=== PATIENT | female | born 1945 | race Asian ===

== ENCOUNTER 2022-06-03 10:30 | Outpatient (RCR) | payer MEDICARE, SELFPAY ==
--- NOTE | 2022-05-13 08:26 | HP.PTEVAL_ITS ---
Patient's Visit Information ALMA DELIA MARIN is a 76 year old F referred to Physical Therapy by Dr. Ilia Hernandez MD with a diagnosis of L knee pain. Date of Evaluation: 05/12/22 Physical Therapist: John Kraus DPT - Visit Plan Frequency: 2x /Week Duration: 4 Weeks Plan: Start with L knee/hip strengthening in aquatic setting. Add in mobility as tolerated. - Subjective Pt. is here today for her initial evaluation with L knee pain. Pt. reports she was in [place] earlier this year and was attempting to get in her car and felt sharp pain in her L knee. She ultimately went to the hospital. She had xrays and given pain medication. She followed back up with physician here in town once returning. Pt. reports physician reported that she might have a posterior lateral horn meniscal injury, but does have some arthritis as well. She was told to stay off stairs and be gentle on her knee. She has been and is now only having intermittent symptoms, but seems to be more random than show a marked pattern. Pt. reports posterior lateral pain, but also having pain that radiates along the front of her knee. PMH: Pt. had a R TKA with x5 DYLON, this knee is now fused; B hip arthroplasties (R hip[ fracture post replacement non displaced but non healing??), OA of L ankle. Pt. likes to garden, and talk walks. She also plans to visit [place] in [place]. Pt. is hopeful to reduce her symptoms in order to tolerate walking better and complete all recreational activities without limitations. - Pain L knee Pain Intensity (Out of 10): 5 - Objective POSTURE: Pt. had general flexed posture. Pt. lacks TKE on R knee, thus has increased Wt. shift to L side. PALPATION: pt. had tenderness throughout L joint line, especially at posterior lateral aspects. NEURO: normal throughout BLEs. ROM: R knee fused in ~15deg of flexon. L knee: 0-4-119eg pain at end ranges. MMT: LLE: 4/5 thorughout mild increase in symptoms with HS and hip flexion. GAIT: Pt. ambulates with SPC, alternating hand use due to B knee pain. Pt. has limited (basically no mobility of R knee). Pt. has decreased step length bilaterally. Increased pain with L stance phase. STAIRS: very limited secondary to pain in her L knee. - Balance/Special Test Scores Lower Extremity Functional Score: 47 - Goals Goal 1:: LTG: Pt. to be I with HEP. Goal Time Frame: 4-6 Weeks Goal 2:: STG: Pt. to have L knee ROM to 0-0-120deg without increase in symptoms. Goal Time Frame: 2 Weeks Goal 3:: LTG: Pt. to walk unlimited distances with SPC without increase in L knee pain. Goal Time Frame: 4-6 Weeks Goal 4:: LTG: Pt. to negotiate 1 flight of stairs with 1 HR without increase in symptoms allowing for increased ability to negotiate to basement. Goal Time Frame: 4-6 Weeks Goal 5:: LTG: pt. to have increased LLE strength to 5/5 throughout. - Rehabilitation Potential Physical Therapy Diagnosis: Pt. has L knee OA possible meniscal pain. Pt. has marked limited R knee ROM, but is here for more of her L knee pain. Pt. would benefit from PT in aquatic setting to work on L LE strength to increase stability on her L knee with all functional mobility. Pt. has to utilize her L knee for most stability and function due to limited RLE ROM. Rehabilitation Potential: Good - Anticipated Interventions Patient/Client Instruction: Educate patient on: Condition, Plan of Care, Risk Factors, Benefits of Fitness Program For the Purpose of:: To improve health and function, To foster healthy habits, To improve decision making, To facilitate caregiver knowledge, To improve self management, To prevent re-injury, To improve ability to perform tasks related to life management Therapeutic Exercise to Include: Strength training, Power training, Endurance training, Balance training, Flexibilty training, Gait and locomotor training, In an aquatic setting, Passive ROM, Active ROM, [place] Exercises For the Purpose of:: To decrease pain, To increase ROM, To improve nutrient delivery to tissue, To increase oxygenation perfusion, To improve muscle performance and motor function, To improve ability to perform ADL's Thank you for the opportunity to evaluate your patient. For Medicare and Medicare HMO plans, please review the plan of care and approve it. It will need to be FAXED BACK to us at [phone] for Medicare purposes. For Medicare only, by signing this I certify the plan of care. Please let me know if there are questions or concerns regarding this plan of care. Physician Signature: Date:
--- NOTE | 2022-06-03 15:20 | HP.PT.NRP ---
ALMA DELIA MARIN was seen in my office for initial evaluation on 05/12/22. The following Plan of Care was established for this patient: Initial Frequency: 2x /Week Initial Duration: 4 Weeks Patient/Client Instruction: Educate patient on: Condition, Plan of Care, Risk Factors, Benefits of Fitness Program For the Purpose of:: To improve health and function, To foster healthy habits, To improve decision making, To facilitate caregiver knowledge, To improve self management, To prevent re-injury, To improve ability to perform tasks related to life management Therapeutic Exercise to Include: Strength training, Power training, Endurance training, Balance training, Flexibilty training, Gait and locomotor training, In an aquatic setting, Passive ROM, Active ROM, [place] Exercises For the Purpose of:: To decrease pain, To increase ROM, To improve nutrient delivery to tissue, To increase oxygenation perfusion, To improve muscle performance and motor function, To improve ability to perform ADL's This patient was last seen in our office 06/03/22. Pertinent comments regarding their Physical therapy will appear below: I talked with Alma Delia today after her appointment in with aquatic therapy. Overall she has been very compliant with all of her exercises and is I with them currently. She is still having some pain, but does not let this slow her down much at all. She is progressing, but slowly. She does have some limitations with her other knee which causes increased stress to her L knee. Pt. is going to continue pool exercises at local facility I. She is also going out to visit her family in [place] at the end of the month and it sounds like she might have some access to something similar there as well. Pt. will be DC from PT at this point in time. At this point I will be discontinuing this patient from physical therapy. I would be happy to see this patient again in the future if found appropriate by the physician. Thank you! John Kraus, DPT Balance/Gait/Functional tests - Balance/Special Test Scores Lower Extremity Functional Score: 53
== END 2022-06-03 19:00 | disposition home or self-care (01) ==
LOC: PT 10:30
PROVIDERS: PCP Internal Medicine; Referring Provider Specialist; Visit Provider Specialist
DX: M25.462 Effusion, left knee; M17.12 Unilateral primary osteoarthritis, left knee
CPT/HCPCS: 97113; 97161

== ENCOUNTER 2023-02-04 20:17 | Emergency (ER) | payer MEDICARE, SELFPAY ==
[2023-02-04 20:18] VITALS: BP 111/69; PULSE 85; RESP 15; TEMP 36.2; O2SAT 98
--- NOTE | 2023-02-04 21:38 | EKG12_ITS ---
Test Reason : DYSRHYTHMIA Blood Pressure : / mmHG Vent. Rate : 082 BPM Atrial Rate : 082 BPM P-R Int : 210 ms QRS Dur : 070 ms QT Int : 344 ms P-R-T Axes : 059 028 048 degrees QTc Int : 401 ms Sinus rhythm with 1st degree A-V block Low voltage QRS Septal infarct , age undetermined Abnormal ECG Confirmed by KEVIN YANG, DEMETRIUS ([id number]), video news editor JAYA SIMMONS ([id number]) on 02/16/2023 9:48:55 AM Referred By: Confirmed By:DEMETRIUS BROWN MD
[2023-02-04 22:16] LABS: Mucous, Urine 0 SEEN /hpf (<or=2+)
[2023-02-04 22:17] VITALS: BP 101/60; PULSE 95; RESP 24; O2SAT 97
[2023-02-04 22:19] LABS: Color, Urine Yellow (Yellow); Glucose, Dipstick Normal (Normal); Ketone-Dipstick Negative (Negative); Leukocyte Esterase-Dipstick 100 /ul (Negative); Nitrite-Dipstick Positive (Negative); Occult Blood-Urine 10 /ul (Negative); Protein-Dipstick 30 mg/dl (Negative); Urine Bilirubin Dipstick Negative (Negative); Urine Clarity Sl. Cloudy (Clear); Urine Urobilinogen Normal (Normal)
[2023-02-04 22:24] LABS: Red Blood Cells-Urine 0-5 SEEN /hpf (0-5); Squamous Epithelial Cells - UA 0-5 SEEN /hpf (5-10); White Blood Cells 5-10 SEEN /hpf (0-5)
[2023-02-04 22:25] LABS: Bacteria 1+ /hpf (None Seen)
--- NOTE | 2023-02-04 22:25 | EDS_ITS ---
HPI History of Present Illness Chief Complaint: Abn Labs Informant: patient and PCP Narrative Narrative: 77-year-old female with past medical history of diabetes and hyperlipidemia presenting for abnormal labs. Patient went and saw nurse practitioner PCP office today for 2 weeks of generalized malaise, 10 pound weight loss, decreased appetite. She had lab work performed which showed calcium of 15, BUN of 64 and a creatinine of 2.3. PCP sent her to the ER. Her glucose was 89. She also has a mild anemia. Apparently 2 months ago patient's BUN was 21 and her creatinine was 0.59. She was also prescribed Macrobid for concern of UTI which she has not started yet. Patient denies any urinary symptoms. She denies any fever, chills, night sweats, GI or symptoms. Notes that she has had a mild intermittent dry cough. No other complaints at this time. PFSH PFSH Home Medications atorvastatin 10 mg tablet 10 mg PO QHS 02/04/23 [History Last Taken Unknown] cholecalciferol (vitamin D3) 125 mcg (5,000 unit) tablet (Vitamin D3) 125 mcg PO DAILY 02/04/23 [History Last Taken Unknown] metformin 1,000 mg tablet 1,000 mg PO BID 02/04/23 [History Last Taken Unknown] Allergy/AdvReac Type Severity Reaction Status Date / Time celecoxib [From Celebrex] AdvReac HEADACHE Verified 02/04/23 20:23 Penicillins AdvReac HEADACHE Verified 02/04/23 20:23 Social History Smoking Status: Never smoker ROS ROS ED Constitutional Constitutional ED: Reports weight loss; Denies chills, fever(s) or sweats Eyes Eyes: Denies change in vision ENT ENT ED: Denies sore throat Cardiovascular Cardiovascular: Denies chest pain Respiratory/Chest Respiratory/Chest: Reports cough; Denies dyspnea Gastrointestinal Gastrointestinal: Denies abdominal pain, constipation, diarrhea, melena, nausea or vomiting Genitourinary Genitourinary ED: Denies dysuria, hematuria or urinary frequency Musculoskeletal Musculoskeletal: Reports other Details: chronic neuroma on right foot, no change ; Denies arthralgias or myalgias Integumentary Denies rash Neurologic Neurologic: Reports weakness; Denies headache(s) or paresthesias Psychiatric Psychiatric: Denies anxiety Hematologic/Lymphatic Hematologic/Lymphatic: Denies easy bleeding or easy bruising EXAM Physical Exam Const Vital Signs: 02/04/23 20:18 02/04/23 22:17 02/04/23 22:37 Temperature 97.2 F L Temperature Source Temporal Pulse Rate 85 95 Respiratory Rate 15 24 H Respiratory Effort Normal Non-Labored Respiratory Pattern Normal Blood Pressure 111/69 101/60 Blood Pressure Mean 83 73 Pulse Ox 98 97 Oxygen Delivery Method Room Air Room Air 02/05/23 00:00 Temperature Temperature Source Pulse Rate 79 Respiratory Rate 17 Respiratory Effort Respiratory Pattern Blood Pressure 124/66 H Blood Pressure Mean 85 Pulse Ox 96 Oxygen Delivery Method Room Air Positive well nourished and well developed General Appearance ED: well developed and NAD HEENT Reports moist mucous membranes Eyes PERRL and EOMs intact bilaterally Neck supple and no JVD Neck Narrative: No enlarged thyroid Chest Wall inspection of chest normal Chest Narrative: Nontender swelling, approximately 2 cm in diameter with no overlying erythema just inferior to the head of the right clavicle Resp normal respiratory effort and clear to auscultation bilaterally Cardio regular rate, regular rhythm and no murmurs GI normal to inspection, nondistended, normoactive bowel sounds and non-tender Extremity normal to inspection General Extremety ED: Negative for edema or tenderness General Extremity: Negative for edema Neuro oriented x3 Sensorium / Orientation: alert Motor Exam: Negative for general weakness Psych mental status grossly normal Skin no rashes or lesions noted and no wounds MDM MDM MDM Narrative Medical decision making narrative: Is evaluated for hypercalcemia as well as BAY on outpatient labs. Labs were repeated here which confirmed that she does not fact have hypercalcemia, calcium is 14.7 with a normal albumin, she is a mild anemia the hemoglobin of 10.6 and a creatinine of 2.16 (her baseline appears to be 1.2). Given IV fluids. Given her profound hypercalcemia CT of the chest abdomen pelvis is performed in order to evaluate for mass/metastatic process. 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 She does have a history of prior gastric bypass. This is reviewed with general surgery, Dr. Lozano, who feels that likely the mass is from her spleen on her interpretation of the imaging but patient will need an MRI for further evaluation as she cannot have IV contrast due to her BAY at this time. Surgery here does not feel comfortable doing a biopsy and states that if she does need a splenic biopsy that would need interventional radiology and we do not have that capability here. Patient will call transfer. Will attempt to transfer patient to [facility]. Patient is agreeable with this. She is given IV Rocephin as she does have a urinary tract infection on urinalysis and urine culture is pending at this time. She has no symptoms of UTI or symptoms of sepsis at this time. Patient is given a bolus of 1 L fluid for her hypercalcemia and started on normal saline at 100 cc an hour. Case is discussed with [facility] transfer line. Patient agreeable to transfer [facility]. [facility]. Also discussed with [facility] hospitalist in case they do not have a bed available in a reasonable amount of time and she requires admission to our hospital until a bed of Decad[facility] becomes available. Lab Data Attestation: I reviewed the patient's lab results. Labs: Laboratory Results - last 24 hr 02/04/23 02/04/23 02/04/23 22:12 22:22 22:22 WBC 9.4 RBC 3.37 L Hgb 10.6 L Hct 33.5 L MCV 99.4 H MCH 31.5 MCHC 31.6 L RDW Std Deviation 48.5 H RDW Coeff of Hardeep 13.3 Plt Count 284 MPV 9.6 Immature Gran % (Auto) 0.300 Neut % (Auto) 65.3 Lymph % (Auto) 25.0 Pender % (Auto) 7.9 Eos % (Auto) 0.9 Baso % (Auto) 0.6 Absolute Neuts (auto) 6.1 Absolute Lymphs (auto) 2.34 Nucleated RBC % 0 Sodium 139 Potassium 3.8 Chloride 107 Carbon Dioxide 27.0 BUN 75 H Creatinine 2.16 H Est GFR (MDRD) Af Amer 28 L Est GFR (MDRD) Non-Af 23 L BUN/Creatinine Ratio 34.7 H Glucose 77 Calcium 14.7 H* Phosphorus 4.3 Total Bilirubin 0.40 Direct Bilirubin 0.14 AST 29 ALT 20 Alkaline Phosphatase 74 Total Protein 6.8 Albumin 3.6 3.7 Globulin 3.2 TSH 1.55 PTH Intact 8.9 L Urine Color Yellow Urine Clarity Sl. Cloudy Urine pH 5.0 Ur Specific [place] 1.020 Urine Protein 30 H Urine Glucose (UA) Normal Urine Ketones Negative Urine Occult Blood 10 H Urine Nitrite Positive H Urine Bilirubin Negative Urine Urobilinogen Normal Ur Leukocyte Esterase 100 H Urine RBC 0-5 SEEN Urine WBC 5-10 SEEN Ur Squamous Epith Cells 0-5 SEEN Urine Bacteria 1+ Urine Mucus 0 SEEN Radiography Diagnostic Testing: Clinical Impression(s) from Imaging Studies Chest/Abdomen/Pelvis CT 02/04/23 23:00 IMPRESSION: 1. Abnormal masslike density in the left upper quadrant measuring up to 12 cm. This could represent a gastric mass arising from the excluded portion of the stomach in this patient with previous gastric bypass. Alternatively, it could represent a mass arising from the spleen. A follow-up CT examination with intravenous and oral contrast is recommended. 2. Small gallstones. Electronically Signed: Brayan Robles MD at 0:05 EST , Rhythm Strip Rhythm Strip: Sinus Rhythm Rate: 82 Ectopy: None EKG Initial EKG: Attestation: I personally reviewed and interpreted this EKG as follows: Interpretation: Sinus Rhythm Comments: Normal sinus rhythm rate of 82 bpm with first-degree AV block MS interval 210 Normal axis Normal QRS and QTc Low voltage QRS Normal ST segments Prior EKG tracings: not available for review Prior: No Prior Discharge Plan Triage Chief Complaint: Abn Labs ED Provider: Laura Garcia Dx/Rx/DC Orders Clinical Impression: BAY (acute kidney injury), Abdominal mass, left upper quadrant, Anemia, Hypercalcemia Prescriptions: No Action metformin 1,000 mg tablet 1,000 mg PO BID atorvastatin 10 mg tablet 10 mg PO QHS cholecalciferol (vitamin D3) [Vitamin D3] 125 mcg (5,000 unit) tablet 125 mcg PO DAILY Primary Care Provider: Lizy Jewell Referrals: Lizy Jewell MD [Primary Care Provider] - Disposition Disposition: Acute Care Hospital
[2023-02-04 22:27] LABS: Absolute Lymphocyte Count 2.34 X10^3/uL (0.83-4.51); Absolute Neutrophil Count 6.1 X10^3/uL (2.0-7.7); Basophil# 0.06 X10^3/uL; Basophil% 0.6 % (0-1); Eosinophil# 0.08 X10^3/uL; Eosinophils% 0.9 % (0-5); Hematocrit 33.5 % (37-47); Hemoglobin 10.6 g/dL (12.0-15.0); Lymphocyte # 2.34 X10^3/ul (0.83-4.51); Mean Corp Hgb Conc 31.6 g/dL (32-36); Mean Corpuscular Hgb 31.5 pg (27.0-32.0); Mean Corpuscular Volume 99.4 fL (81-99); Mean Platelet Vol. 9.6 fl (6.2-12.0); Monocyte# 0.74 X10^3/uL; Monocyte% 7.9 % (0-10); NRBC Flagged by Analyzer 0 % (0-5); Neutrophil % 65.3 % (47-70); Platelet Count 284 K/mm3 (150-450); RBC Distribution Width CV 13.3 % (11.6-14.6); RBC Distribution Width SD 48.5 fl (35.1-43.9); Red Blood Count 3.37 M/mm3 (4.2-5.4); White Blood Count 9.4 K/mm3 (4.4-11.0)
[2023-02-04 22:45] LABS: AST(SGOT) 29 U/L (15-37); Alanine Aminotransfer ALT/SGPT 20 U/L (13-56); Albumin, Serum 3.6 g/dL (3.2-5.0); Alkaline Phosphatase 74 U/L (45-117); Bilirubin, Direct 0.14 mg/dL (0.00-0.30); Globulin 3.2 g/dL (2.2-4.2); Protein, Total 6.8 g/dL (6.4-8.2)
[2023-02-04] MEDS: 0.9% Normal Saline (1000mL) 1,000 ML 100 ML IV (22:49)
[2023-02-04 22:58] LABS: Albumin, Serum 3.7 g/dL (3.2-5.0); BUN 75 mg/dL (7-18); BUN/Creat Ratio 34.7 RATIO (10-20); Chloride 107 mmol/L (98-107); Creatinine, Serum 2.16 mg/dL (0.55-1.02); EST Glomerular Filtration Rate 23 mL/min (>60); Est Glom Filt Rate - Afr Amer 28 mL/min (>60); Glucose 77 mg/dL (74-106); Phosphorus 4.3 mg/dL (2.5-4.9); Potassium 3.8 mmol/L (3.5-5.1); Sodium Level 139 mmol/L (136-145); Thyroid Stim Hormone (TSH) 1.55 uIU/mL (0.358-3.74)
[2023-02-04 23:00] LABS: Calcium,Total 14.7 mg/dL (8.5-10.1)
--- NOTE | 2023-02-04 23:00 | CT_ITS ---
EXAM: CT CHEST, ABDOMEN AND PELVIS WITHOUT INTRAVENOUS CONTRAST CLINICAL INDICATION: hypercalcemia TECHNIQUE: Helically acquired images were obtained of the chest, abdomen and pelvis without intravenous contrast. This CT exam was performed using one or more of the following dose reduction techniques: automated exposure control, adjustment of the mA and/or kV according to patient size, and/or use of iterative reconstruction technique. RADIATION DOSE: CTDIvol = 7.68 mGy, DLP = 660.52 mGy-cm COMPARISON: No relevant prior studies available. FINDINGS: CHEST: LUNGS AND PLEURAL SPACES: Unremarkable. No mass. No consolidation or edema. No pleural effusion or thickening. No pneumothorax. HEART: Unremarkable. Heart size is normal. No pericardial effusion. No significant coronary artery calcifications. MEDIASTINUM: Unremarkable. No mediastinal or hilar adenopathy. Esophagus is unremarkable. No hiatal hernia. THYROID: Unremarkable. No thyroid lesions. ABDOMEN: LIVER: Unremarkable. Homogeneous. GALLBLADDER AND BILE DUCTS: Small gallstones. No gallbladder distention or wall edema. No intra- or extrahepatic biliary ductal dilation. PANCREAS: Unremarkable. No focal cystic mass. SPLEEN: The inferior margin has a normal appearance, but the superior margin blends with a large mass in the left upper quadrant measuring up to 12 cm.. ADRENALS: Unremarkable. No nodules. KIDNEYS AND URETERS: Unremarkable. Normal renal size and position. No hydronephrosis. STOMACH AND BOWEL: Abnormal masslike density in the left upper quadrant measuring up to 12 cm. Gastric bypass changes. No stomach or bowel distention. No focal inflammatory change. PELVIS: APPENDIX: No evidence of acute appendicitis. BLADDER: Unremarkable. REPRODUCTIVE: Unremarkable as visualized. No mass. CHEST, ABDOMEN and PELVIS: INTRAPERITONEAL SPACE: Unremarkable. No ascites or other fluid collection. No free air. BONES/JOINTS: Diffuse degenerative changes of the spine. Bilateral total hip arthroplasties. No suspicious lytic or blastic abnormality. SOFT TISSUES: Unremarkable. No discrete abdominal or pelvic wall hernia. VASCULATURE: Moderate atherosclerotic changes and ectasia of the aorta without aneurysm. LYMPH NODES: Unremarkable. No enlarged lymph nodes. CT/CT Chest, Abd, Pelvis WO Cont IMPRESSION: 1. Abnormal masslike density in the left upper quadrant measuring up to 12 cm. This could represent a gastric mass arising from the excluded portion of the stomach in this patient with previous gastric bypass. Alternatively, it could represent a mass arising from the spleen. A follow-up CT examination with intravenous and oral contrast is recommended. 2. Small gallstones. Electronically Signed: Brayan Robles MD at 0:05 EST ,
[2023-02-04 23:41] LABS: PTHIN 8.9 pg/mL (18.4-80.1)
[2023-02-05] VITALS: BP 124/66; PULSE 79; RESP 17; O2SAT 96
[2023-02-05] MEDS: 0.9% Normal Saline (500mL Bag) 500 ML 999 ML IV (00:18)
--- NOTE | 2023-02-05 01:00 | HP.PCM.HOS_ITS ---
HPI - General General Date of Admission: 02/05/23 Date of Service: 02/05/23 Chief Complaint: Hypercalcemia of 14.7 noted on outpatient labs. HPI Narrative ALMA DELIA MARIN, is a 77 F with a past medical history of who presents hyperlipidemia, diabetes mellitus type 2; of unknown control and osteoarthritis who presents to [facility] ER complaining of hypercalcemia of 14.7 mg/dL noted on her outpatient labs. Ms. Marin [facility] Home Medications atorvastatin 10 mg tablet 10 mg PO QHS 02/04/23 [History Last Taken Unknown] cholecalciferol (vitamin D3) 125 mcg (5,000 unit) tablet (Vitamin D3) 125 mcg PO DAILY 02/04/23 [History Last Taken Unknown] metformin 1,000 mg tablet 1,000 mg PO BID 02/04/23 [History Last Taken Unknown] Allergy/AdvReac Type Severity Reaction Status Date / Time celecoxib [From Celebrex] AdvReac HEADACHE Verified 02/04/23 20:23 Penicillins AdvReac HEADACHE Verified 02/04/23 20:23 Social History Smoking Status: Never smoker Vital Signs Vital Signs Vital Signs: 02/04/23 20:18 02/04/23 22:17 02/04/23 22:37 Temperature 97.2 F L Temperature Source Temporal Pulse Rate 85 95 Respiratory Rate 15 24 H Respiratory Effort Normal Non-Labored Respiratory Pattern Normal Blood Pressure 111/69 101/60 Blood Pressure Mean 83 73 Pulse Ox 98 97 Oxygen Delivery Method Room Air Room Air Results Lab / Micro Data 02/04/23 22:22 02/04/23 22:22 Labs: Laboratory Results - last 24 hr 02/04/23 22:12: Urine Color Yellow, Urine Clarity Sl. Cloudy, Urine pH 5.0, Ur Specific [place] 1.020, Urine Protein 30 H, Urine Glucose (UA) Normal, Urine Ketones Negative, Urine Occult Blood 10 H, Urine Nitrite Positive H, Urine Bilirubin Negative, Urine Urobilinogen Normal, Ur Leukocyte Esterase 100 H, Urine RBC 0-5 SEEN, Urine WBC 5-10 SEEN, Ur Squamous Epith Cells 0-5 SEEN, Urine Bacteria 1+, Urine Mucus 0 SEEN 02/04/23 22:22: WBC 9.4, RBC 3.37 L, Hgb 10.6 L, Hct 33.5 L, MCV 99.4 H, MCH 31.5, MCHC 31.6 L, RDW Std Deviation 48.5 H, RDW Coeff of Hardeep 13.3, Plt Count 284, MPV 9.6, Immature Gran % (Auto) 0.300, Neut % (Auto) 65.3, Lymph % (Auto) 25.0, [place] % (Auto) 7.9, Eos % (Auto) 0.9, Baso % (Auto) 0.6, Absolute Neuts (auto) 6.1, Absolute Lymphs (auto) 2.34, Nucleated RBC % 0, Sodium 139, Potassium 3.8, Chloride 107, Carbon Dioxide 27.0, BUN 75 H, Creatinine 2.16 H, Est GFR (MDRD) Af Amer 28 L, Est GFR (MDRD) Non-Af 23 L, BUN/Creatinine Ratio 34.7 H, Glucose 77, Calcium 14.7 H*, Phosphorus 4.3, Total Bilirubin 0.40, Direct Bilirubin 0.14, AST 29, ALT 20, Alkaline Phosphatase 74, Total Protein 6.8, Albumin 3.6 02/04/23 22:22: Albumin 3.7, Globulin 3.2, TSH 1.55, PTH Intact 8.9 L Rhythm Strip Rhythm Strip: Sinus Rhythm Rate: 82 Ectopy: None Radiology Impression Chest/Abdomen/Pelvis CT 02/04/23 23:00 IMPRESSION: 1. Abnormal masslike density in the left upper quadrant measuring up to 12 cm. This could represent a gastric mass arising from the excluded portion of the stomach in this patient with previous gastric bypass. Alternatively, it could represent a mass arising from the spleen. A follow-up CT examination with intravenous and oral contrast is recommended. 2. Small gallstones. Electronically Signed: Brayan Robles MD at 0:05 EST ,
--- NOTE | 2023-02-05 01:45 | ED.RN ---
[facility] paged for tele/ICU for diagnosis of hypercalcemia, splenic mass and BAY.
[2023-02-05] MEDS: Ceftriaxone 1 GM/50 ML BAG IV (02:01)
[2023-02-05 02:04] VITALS: BP 115/72; PULSE 72; RESP 18; O2SAT 96
--- NOTE | 2023-02-05 02:55 | ED.RN ---
PT ACCEPTED AT [facility] [id number]
[2023-02-05 03:44] VITALS: BP 138/70; PULSE 62; RESP 18; O2SAT 96
[2023-02-05 06:00] VITALS: BP 113/62; PULSE 64; RESP 13; O2SAT 95
[2023-02-05 06:58] VITALS: BP 100/60; PULSE 67; RESP 14; TEMP 36.2; O2SAT 96
[2023-02-05 07:00] VITALS: BP 100/60; PULSE 67; RESP 14; TEMP 36.2; O2SAT 94
== END 2023-02-05 07:02 | disposition short-term general hospital (02) ==
PROVIDERS: Emergency Provider Emergency Medicine; PCP Internal Medicine; Visit Provider Emergency Medicine
DX: N17.9 Acute kidney failure, unspecified (principal); E11.9 Type 2 diabetes mellitus without complications; N39.0 Urinary tract infection, site not specified; E83.52 Hypercalcemia; R19.02 Left upper quadrant abdominal swelling, mass and lump; D64.9 Anemia, unspecified; E78.5 Hyperlipidemia, unspecified; Z79.84 Long term (current) use of oral hypoglycemic drugs; Z79.899 Other long term (current) drug therapy; Z98.84 Bariatric surgery status
CPT/HCPCS: 71250; 74176; 80069; 80076; 81001; 83970; 84443; 85025; 87077; 87086; 87088; 87186; 93005; 96361; 96365; 99283; J7030; J7040; A4216

== ENCOUNTER 2023-04-13 13:57 | Observation (INO) | payer MEDICARE, SELFPAY ==
[2023-04-13 13:58] VITALS: BP 109/54; PULSE 98; RESP 18; TEMP 36.1; O2SAT 100
[2023-04-13 14:00] VITALS: BMI 25.5
--- NOTE | 2023-04-13 14:11 | VDLE_ITS ---
Reason For Study: Right leg pain RIGHT LEFT GSV is normal. CFV is compressible, spontaneous, phasic, CFV is compressible, spontaneous, phasic, competent, and demonstrates normal competent and demonstrates normal augmentation. augmentation. FV is compressible, spontaneous, phasic, competent and demonstrates normal augmentation. POP V is compressible, spontaneous, phasic, competent and demonstrates normal augmentation. T/P Trunk is compressible. PTV is compressible. RT PerV is compressible. SSV is NONCOMPRESSIBLE with mixed echoginicity. Procedure This is a venous duplex using B-mode, color flow and spectral Doppler. Exam performed portable in ED. A preliminary report was called and/or faxed to ED RN. VL/Venous Duplex US, Unilateral Interpretation Summary 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 Deep veins of the right lower extremity are patent and compressible segmentally . There is no evidence of right lower extremity deep vein thrombosis. The right great sapheno us vein appears patent and compressible segmentally. Ordering Physician: Gareth Lino Referring Physician: Lizy Jewell M.D. Performed By: Abigail Kirk RVT
--- NOTE | 2023-04-13 17:36 | EKG12_ITS ---
Test Reason : Blood Pressure : / mmHG Vent. Rate : 081 BPM Atrial Rate : 081 BPM P-R Int : 168 ms QRS Dur : 068 ms QT Int : 388 ms P-R-T Axes : 016 022 044 degrees QTc Int : 450 ms Normal sinus rhythm Low voltage QRS Borderline ECG Confirmed by KEVIN YANG, DEMETRIUS ([id number]), art editor JAYA SIMMONS ([id number]) on 04/15/2023 9:49:17 AM Referred By: Confirmed By:DEMETRIUS BROWN MD
[2023-04-13 18:11] LABS: Hematocrit 23.9 % (37-47); Hemoglobin 7.9 g/dL (12.0-15.0); Mean Corp Hgb Conc 33.1 g/dL (32-36); Mean Corpuscular Hgb 32.9 pg (27.0-32.0); Mean Corpuscular Volume 99.6 fL (81-99); POSITIVE COUNT YES; POSITIVE MORPHOLOGY YES; Platelet Count 259 K/mm3 (150-450); RBC Distribution Width CV 14.5 % (11.6-14.6); RBC Distribution Width SD 49.9 fl (35.1-43.9); White Blood Count 13.5 K/mm3 (4.4-11.0)
--- NOTE | 2023-04-13 18:13 | RAD_ITS ---
STUDY: X-RAY CHEST REASON FOR EXAM: Female, 77 years old. chest pain TECHNIQUE: AP portable COMPARISON: None. FINDINGS: Elevated left hemidiaphragm and minor basilar atelectasis. There is no demonstrated pleural abnormality. Portacatheter is noted on the right with tip in distal superior vena cava Normal size heart. Normal mediastinum and anai. Normal visualized pulmonary arteries. Mildly tortuous and calcified aortic arch and descending thoracic aorta. Normal visualized thoracic spine. Normal visualized clavicles, and shoulders. Old healed right rib fracture There is no demonstrated abnormality of the visualized soft tissue structures of the upper abdomen. RAD/Chest 1 View (Portable) IMPRESSION: Elevated left hemidiaphragm and minor basilar atelectasis. Electronically Signed: Leroy Forte MD at 18:36 EST ,
[2023-04-13 18:18] LABS: Differential Indicated MANUAL DIFF
[2023-04-13 18:21] VITALS: PULSE 89; RESP 24; O2SAT 97
[2023-04-13 18:29] LABS: Anion Gap 1 (5-15); BUN 21 mg/dL (7-18); Calcium,Total 9.1 mg/dL (8.5-10.1); Chloride 114 mmol/L (98-107); Creatinine, Serum 0.75 mg/dL (0.55-1.02); EST Glomerular Filtration Rate 79 mL/min (>60); Est Glom Filt Rate - Afr Amer 96 mL/min (>60); Glucose 108 mg/dL (74-106); Potassium 3.7 mmol/L (3.5-5.1); Sodium Level 144 mmol/L (136-145); Troponin-I HS 10 pg/mL (3.0-54.0)
[2023-04-13 18:34] LABS: Eosinophil 1 % (0-5); Lymphocyte 11 % (19-41); Monocyte 2 % (0-10); Neutrophil-Band 4 % (0-5); Neutrophil-Segmented 82 % (47-70); Total Cells Counted 100 (MANUAL DIFF)
[2023-04-13 18:36] LABS: Anisocytosis 1+; Hypochromasia 1+; Platelet Estimate ADEQUATE (ADEQ)
[2023-04-13 18:37] LABS: Absolute Lymphocyte Count 1.49 X10^3/uL (0.83-4.51); Absolute Neutrophil Count 11.6 X10^3/uL (2.0-7.7)
--- NOTE | 2023-04-13 19:21 | EKG12_ITS ---
Test Reason : REPEAT Blood Pressure : / mmHG Vent. Rate : 118 BPM Atrial Rate : 000 BPM P-R Int : 000 ms QRS Dur : 068 ms QT Int : 286 ms P-R-T Axes : 000 036 021 degrees QTc Int : 400 ms Atrial fibrillation with rapid ventricular response Low voltage QRS Abnormal ECG Confirmed by KEVIN YANG, DEMETRIUS ([id number]), supervising film or videotape editor JAYA SIMMONS ([id number]) on 04/15/2023 9:49:29 AM Referred By: Confirmed By:DEMETRIUS BROWN MD
--- NOTE | 2023-04-13 19:21 | CT_ITS ---
STUDY: CTA CHEST REASON FOR EXAM: Female, 77 years old. cp, cancer, tachycardia RADIATION DOSAGE (If Supplied By Facility): CTDIvol = ( 5.94 ) mGy, DLP = ( 133.43 ) mGycm TECHNIQUE: The examination was performed with the intravenous administration of IV 75mL Isovue-370. Post-processing of the angiographic images was performed, with multiplanar reformation and 3D reconstruction. Individualized dose optimization techniques were used for this CT. COMPARISON: None. FINDINGS: Normal enhancement of the main pulmonary artery and right and left pulmonary arteries. Normal enhancement of the bilateral peripheral pulmonary arteries. There is no demonstrated pulmonary embolism. Atherosclerotic changes of the aorta without evidence for There is no demonstrated aortic dissection. Normal heart and pericardium. Mild coronary artery calcification Normal mediastinum. Normal hilar regions. Normal visualized trachea and bronchi. The lungs are well expanded. Normal pulmonary parenchyma. Normal pleura. Normal chest wall structures. Dorsal spine demonstrates degenerative changes. Normal visualized upper abdomen. CT/CTA Chest W/WO Contrast IMPRESSION: ASHD without evidence for acute cardiopulmonary pathology. No evidence for aortic aneurysm or aortic dissection or pulmonary embolus Electronically Signed: Leroy Forte MD at 21:29 EST ,
[2023-04-13 20:09] LABS: D-Dimer Quantitative (DVT/PE) 0.73 FEU/ug/m (0.27-0.49)
--- NOTE | 2023-04-13 20:36 | EDS_ITS ---
HPI History of Present Illness Chief Complaint: Lower Extremity Injury Detail of Chief Complaint: Chest pain, right leg swelling Informant: patient and other (Oncologist) Onset/Context/Timing Onset: Weeks Context: Gradual Onset Narrative Narrative: Patient presents secondary to concern for DVT. She had a venous ultrasound obtained while still in the waiting room. As I am interviewing the patient she also asked what she needs to do about her heart workup. After speaking with her oncologist it appears the patient has had this intermittent chest pressure for the past 2 weeks since she started chemotherapy. She was recently diagnosed with B-cell lymphoma. She had an echocardiogram today here at the hospital but read is not yet available. After speaking with Dr. Rachel we agreed that we would do her cardiac workup here including troponin and if negative they would follow her up for an outpatient stress as needed. [facility] Medical History (Updated 04/13/23 @ 22:[address] Phuong Alvares MD) B-cell lymphoma Home Medications atorvastatin 10 mg tablet 10 mg PO QHS 02/04/23 [History Last Taken Unknown] cholecalciferol (vitamin D3) 125 mcg (5,000 unit) tablet (Vitamin D3) 125 mcg PO DAILY 02/04/23 [History Last Taken Unknown] metformin 1,000 mg tablet 1,000 mg PO BID 02/04/23 [History Last Taken Unknown] Allergy/AdvReac Type Severity Reaction Status Date / Time celecoxib [From Celebrex] AdvReac HEADACHE Verified 04/13/23 13:58 Penicillins AdvReac HEADACHE Verified 04/13/23 13:58 Social History Smoking Status: Never smoker ROS ROS ED Constitutional Constitutional ED: Denies chills or fever(s) Eyes Eyes: Denies change in vision or discharge from eye(s) ENT ENT ED: Denies discharge from eye(s), rhinorrhea or sore throat Cardiovascular Cardiovascular: Reports chest pain; Denies palpitations Respiratory/Chest Respiratory/Chest: Reports dyspnea; Denies cough Gastrointestinal Gastrointestinal: Denies abdominal pain, nausea or vomiting Genitourinary Genitourinary ED: Denies dysuria Musculoskeletal Musculoskeletal: Reports extremity pain; Denies back pain Integumentary Denies Abrasions or rash Neurologic Neurologic: Denies headache(s) or weakness Psychiatric Psychiatric: Denies anxiety or depression Allergic/Immunologic Allergic/Immunologic ED: Denies lip swelling or urticaria EXAM Physical Exam Const Vital Signs: 04/13/23 13:58 04/13/23 18:15 04/13/23 18:15 Temperature 97 F L Temperature Source Temporal Pulse Rate 98 Respiratory Rate 18 Respiratory Effort Normal Non-Labored Blood Pressure 109/54 L Blood Pressure Mean 72 Pulse Ox 100 Oxygen Delivery Method Room Air Room Air 04/13/23 18:21 Temperature Temperature Source Pulse Rate 89 Respiratory Rate 24 H Respiratory Effort Blood Pressure Blood Pressure Mean Pulse Ox 97 Oxygen Delivery Method Room Air Positive well nourished and well developed General Appearance ED: well developed HEENT Reports moist mucous membranes Eyes EOMs intact bilaterally Chest Wall inspection of chest normal and palpation of chest normal Resp normal respiratory effort and clear to auscultation bilaterally Cardio regular rate and regular rhythm GI non-tender Palpation: soft Extremity Extremity Narrative: No focal tenderness. Mild edema. Psych mental status grossly normal Skin no rashes or lesions noted MDM MDM MDM Narrative Medical decision making narrative: Venous ultrasound been performed from triage. She has chronic superficial thrombosis noted on the right small saphenous vein but no evidence of DVT. After placement in exam room, patient placed on monitoring tech. IV line established. EKG obtained to evaluate for cardiac arrhythmia/ischemia. Chest x-ray obtained to evaluate for acute lung pathology, cardiac size, or mediastinal abnormality. Labwork obtained to evaluate for leukocytosis, anemia, and electrolyte derangement. History & Record Review Discussion w/independent historian: Patient Lab Data Attestation: I reviewed the patient's lab results. Labs: Laboratory Results - last 24 hr 04/13/23 18:00 WBC 13.5 H RBC 2.40 L Hgb 7.9 L Hct 23.9 L MCV 99.6 H MCH 32.9 H MCHC 33.1 RDW Std Deviation 49.9 H RDW Coeff of Hardeep 14.5 Plt Count 259 MPV 10.0 Neut % (Auto) Not Reportable Absolute Neuts (auto) 11.6 H Absolute Lymphs (auto) 1.49 Total Counted 100 Neutrophils % (Manual) 82 H Band Neutrophils % 4 Lymphocytes % (Manual) 11 L Monocytes % (Manual) 2 Eosinophils % (Manual) 1 Diff Path Review May foll Platelet Estimate ADEQUATE Hypochromasia 1+ Anisocytosis 1+ D-Dimer Quant (PE/DVT) 0.73 H* Sodium 144 Potassium 3.7 Chloride 114 H Carbon Dioxide 29.0 Anion Gap 1 L BUN 21 H Creatinine 0.75 Est GFR (MDRD) Af Amer 96 Est GFR (MDRD) Non-Af 79 BUN/Creatinine Ratio 28.0 H Glucose 108 H Calcium 9.1 Troponin I High Sens 10 Radiography Chest X-Ray - ED: 1 View, Read by ED Physician, Normal, Heart, Lungs and Mediastinum Diagnostic Testing: Clinical Impression(s) from Imaging Studies Venous Doppler Study 04/13/23 14:11 Interpretation Summary 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 Deep veins of the right lower extremity are patent and compressible segmentally. There is no evidence of right lower extremity deep vein thrombosis. The right great saphenous vein appears patent and compressible segmentally. Ordering Physician: Gareth Lino Referring Physician: Lizy Jewell M.D. Performed By: Abigail Kirk RVT Chest X-Ray 04/13/23 18:13 IMPRESSION: Elevated left hemidiaphragm and minor basilar atelectasis. Electronically Signed: Leroy Forte MD at 18:36 EST Reading Location ID and State: [facility] / [place] Tel [phone], Service support , Chest CTA 04/13/23 19:21 IMPRESSION: ASHD without evidence for acute cardiopulmonary pathology. No evidence for aortic aneurysm or aortic dissection or pulmonary embolus Electronically Signed: Leroy Forte MD at 21:29 EST , EKG Initial EKG: Attestation: I personally reviewed and interpreted this EKG as follows: Interpretation: Sinus Rhythm (Sinus at 81 with no acute ischemia.) Follow-up EKG: Attestation: I personally reviewed and interpreted this EKG as follows: Interpretation: Atrial Fibrillation (Atrial fibrillation with ventricular rate of 118. No ST change.) Treatment and Re-Evaluation :: CBC was a white count of 13.5 with a hemoglobin of 7.9. This is compared to a hemoglobin of 10.6 in early January. 82% neutrophils are noted. Chemistry studies unremarkable with good renal function. Troponin is normal at 10. I went back to reexamine the patient and advised her of our findings. She asked why her heart rate was now in the 130s. On the monitor her heart rate was in the mid 130 range. Repeat EKG is obtained and is now showing evidence of A-fib RVR. D-dimer was added and is slightly elevated at 0.73, although normal for age. I spoke with Dr. Rachel, her oncologist again. He would prefer a CTA of her chest to evaluate for potential PE as well as admission for treatment of new onset atrial fibrillation and rate control. The echocardiogram was performed today should be read tomorrow. CTA returns with evidence of atherosclerotic heart disease but no evidence of pulmonary embolism. At this time patient is back in sinus rhythm with ventricular rate in the 90s. I will speak with hospitalist regarding admission for observation. Discharge Plan Triage Chief Complaint: Lower Extremity Injury ED Provider: Phuong Alvares Dx/Rx/DC Orders Clinical Impression: Atrial fibrillation, new onset, Paroxysmal A-fib, Chest pain Prescriptions: No Action metformin 1,000 mg tablet 1,000 mg PO BID atorvastatin 10 mg tablet 10 mg PO QHS cholecalciferol (vitamin D3) [Vitamin D3] 125 mcg (5,000 unit) tablet 125 mcg PO DAILY Primary Care Provider: Lizy Jewell Referrals: Lizy Jewell MD [Primary Care Provider] - Disposition Disposition: Acute Care Hospital [facility] Capacity Legal Director Dance Reflex Medical hold order details:: IF a medical hold is selected below, a suggested order for a MEDICAL HOLD will reflex upon signing the document. Next of kin: [place] law dictates a PRIORITY LIST for identifying legal decision-maker/legal next of kin in the following order (LNOK): 1st: The patient?s legal guardian, if any 2nd: The patient's spouse (if status is questionable, consult Risk Management) 3rd: The patient?s adult child(eliana) (majority, if multiple children) 4th: The patient?s parents 5th: The patient?s adult siblings (majority, if multiple children siblings)
[2023-04-13 22:00] VITALS: PULSE 92; RESP 16; O2SAT 100
--- NOTE | 2023-04-13 22:20 | HP.PCM.HOS_ITS ---
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 Rachel of oncology who presents to [facility] ER complaining of chest pressure and palpitations. Ms. Bloom reports her symptoms began approximately 2 weeks prior to admission after she was recently started on chemotherapy. Her oncologist was potentially concerned for DVT with a negative LE ultrasound followed by an unremarkable CTA of the chest. She also underwent an echocardiogram which was also unremarkable with a normal LVEF and no acute pathologic changes noted. Chronic superficial vein thrombosis is noted in the Right small saphenous veins - but no DVT noted on LE ultrasound. She denies associated fever, chills, nausea, vomiting or diaphoresis. In the ER she then transiently spiked her heart rate up to ~135 bpm with EKG positive for atrial fibrillation with RVR that is likely paroxysmal in nature with her oncologist recommending her enzymes be cycled overnight with cardiology consultation in the AM which was done. She was then admitted to the CDU under observation status for a stay that is expected to be less than 48 hours. [facility] Medical History B-cell lymphoma Home Medications atorvastatin 10 mg tablet 10 mg PO QHS 02/04/23 [History Last Taken Unknown] cholecalciferol (vitamin D3) 125 mcg (5,000 unit) tablet (Vitamin D3) 125 mcg PO DAILY 02/04/23 [History Last Taken Unknown] metformin 1,000 mg tablet 1,000 mg PO BID 02/04/23 [History Last Taken Unknown] Allergy/AdvReac Type Severity Reaction Status Date / Time celecoxib [From Celebrex] AdvReac HEADACHE Verified 04/13/23 13:58 Penicillins AdvReac HEADACHE Verified 04/13/23 13:58 Social History Smoking Status: Never smoker ROS ROS Narrative Review of systems: General: Patient denies fevers or chills. HENT: Denies headache, denies stuffy nose, denies sore throat EYES: Denies changes in vision or discharge from eyes. Resp: Denies cough, denies shortness of breath Cardiac: Patient admits to chest pressure and palpitations GI: Denies abdominal pain, denies changes in bowel, Denies nausea or vomiting : Denies changes in urination Extremity: Denies swelling Musculoskeletal: Patient reports pain in extremities. Neuro: Denies any numbness/tingling Heme: Denies any bleeding or bruising Skin: Denies rashes Psychiatric: No complaints voiced related to uncontrolled depression or anxiety. Endocrine: No polyuria, polydipsia or polyphagia. The rest of the 14 point ROS was negative except for positives in HPI. Vital Signs Vital Signs Vital Signs: 04/13/23 13:58 04/13/23 18:15 04/13/23 18:15 Temperature 97 F L Temperature Source Temporal Pulse Rate 98 Respiratory Rate 18 Respiratory Effort Normal Non-Labored Blood Pressure 109/54 L Blood Pressure Mean 72 Pulse Ox 100 Oxygen Delivery Method Room Air Room Air 04/13/23 18:21 Temperature Temperature Source Pulse Rate 89 Respiratory Rate 24 H Respiratory Effort Blood Pressure Blood Pressure Mean Pulse Ox 97 Oxygen Delivery Method Room Air Physical Exam Const alert, oriented x3, no apparent distress, average body habitus and healthy appearing General Appearance: cooperative HEENT normocephalic, head/scalp atraumatic, hearing grossly normal bilaterally and moist oral mucous membranes Eyes PERRL and EOMs intact bilaterally Neck no lymphadenopathy and supple Resp normal respiratory effort, no retractions, no use of accessory muscles and clear to auscultation bilaterally Cardio regular rate and regular rhythm GI normal to inspection, nondistended, normoactive bowel sounds, soft to palpation, non-tender and non-distended Extremity normal to inspection and full ROM Neuro oriented x3, CN's II-XII intact bilaterally, moves all extremities and no focal motor deficits Sensorium / Orientation: awake, alert, oriented to person, oriented to place and oriented to time Speech: speech normal Motor Exam: strength 5/5 throughout Psych affect normal Results Medical Records Data Attestation: I reviewed the patient's medical records Lab / Micro Data Attestation: I reviewed the patient's lab results. 04/13/23 18:00 04/13/23 18:00 Labs: Laboratory Results - last 24 hr 04/13/23 18:00: WBC 13.5 H, RBC 2.40 L, Hgb 7.9 L, Hct 23.9 L, MCV 99.6 H, MCH 32.9 H, MCHC 33.1, RDW Std Deviation 49.9 H, RDW Coeff of Hardeep 14.5, Plt Count 259, MPV 10.0, Neut % (Auto) Not Reportable, Absolute Neuts (auto) 11.6 H, Absolute Lymphs (auto) 1.49, Total Counted 100, Neutrophils % (Manual) 82 H, Band Neutrophils % 4, Lymphocytes % (Manual) 11 L, Monocytes % (Manual) 2, Eosinophils % (Manual) 1, Diff Path Review July, Platelet Estimate ADEQUATE, Hypochromasia 1+, Anisocytosis 1+, D-Dimer Quant (PE/DVT) 0.73 H*, Sodium 144, Potassium 3.7, Chloride 114 H, Carbon Dioxide 29.0, Anion Gap 1 L, BUN 21 H, Creatinine 0.75, Est GFR (MDRD) Af Amer 96, Est GFR (MDRD) Non-Af 79, BUN/Creatinine Ratio 28.0 H, Glucose 108 H, Calcium 9.1, Troponin I High Sens 10 Imagaing Radiology Impression Venous Doppler Study 04/13/23 14:11 Interpretation Summary 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 Deep veins of the right lower extremity are patent and compressible segmentally. There is no evidence of right lower extremity deep vein thrombosis. The right great saphenous vein appears patent and compressible segmentally. Ordering Physician: Gareth Lino Referring Physician: Lizy Jewell M.D. Performed By: Abigail Kirk RVT Chest X-Ray 04/13/23 18:13 IMPRESSION: Elevated left hemidiaphragm and minor basilar atelectasis. Electronically Signed: Leroy Forte MD at 18:36 EST Reading Location ID and State: [address] [place] [address] Tel , Service support , Chest CTA 04/13/23 19:21 IMPRESSION: ASHD without evidence for acute cardiopulmonary pathology. No evidence for aortic aneurysm or aortic dissection or pulmonary embolus Electronically Signed: Leroy Forte MD at 21:29 EST Reading Location ID and State: [facility] / [place] Tel , Service support , Assessment & Plan Assessment/Plan (1) Chest pain: QUALIFIERS: Chest pain type: unspecified Qualified Code(s): R07.9 - Chest pain, unspecified (2) Paroxysmal A-fib: (3) Atrial fibrillation, new onset: PLAN: Plan 1. Paroxysmal atrial fibrillation With RVR complicated by chest pain - Admit to CDU under observation status. Serialize troponin. Check Lexiscan NST in the AM to evaluate for potential underlying ischemia. Start oral Cardizem and full- dose Lovenox given her PAF. Check TSH. Finally, we will consult cardiology to see this patient on-rounds in the AM as per her oncologist's recommendations with help appreciated in advance. 2. 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 Resume current therapy unless chemotherapy agent is deemed to be potentially cardiotoxic. 3. Chronic superficial vein thrombosis is noted in the Right small saphenous veins - but no DVT noted on LE ultrasound. Patient on ECASA and Lovenox. 4. Hyperlipidemia - Resume statin as previous. 5. DM-2; of unknown control on Metformin - Hold Metformin. ADA diet with FSBS q. AC/HS plus SSI. Check HgbA1c to objectively assess quality of diabetic control. 6. DVT prophylaxis - Patient to be started on full-dose Lovenox for #1. Total time: Approximately 45 minutes. Charges/Coding Visit Charges OBSV E&M: 28917 Observ/hosp same date L1
[2023-04-13 23:07] VITALS: BMI 25.5
[2023-04-13 23:11] VITALS: BP 148/68; PULSE 73; RESP 15; TEMP 36.6; O2SAT 98
[2023-04-14] VITALS (12 sets, daily range): BP systolic 84–115; BP diastolic 58–70; PULSE 78–143; RESP 12–20; TEMP 36.4–36.8; O2SAT 94–98
[2023-04-14] MEDS: Enoxaparin 60 MG/0.6 ML Syringe 55 MG SC (00:02)
[2023-04-14 00:24] LABS: Thyroid Stim Hormone (TSH) 1.18 uIU/mL (0.358-3.74); Troponin-I HS 10 pg/mL (3.0-54.0)
[2023-04-14] MEDS: Diltiazem 125 MG in Dextrose 5%-Water (100mL Bag) 100 ML CONT INF (01:45)
--- NOTE | 2023-04-14 01:49 | EKG12_ITS ---
Test Reason : a fib Blood Pressure : / mmHG Vent. Rate : 111 BPM Atrial Rate : 122 BPM P-R Int : 288 ms QRS Dur : 068 ms QT Int : 340 ms P-R-T Axes : 000 052 043 degrees QTc Int : 462 ms Sinus tachycardia with 1st degree A-V block Low voltage QRS Septal infarct , age undetermined Abnormal ECG When compared with ECG of 13-APR-2023 19:27, MANUAL COMPARISON REQUIRED, DATA IS UNCONFIRMED Confirmed by KEVIN YANG, DEMETRIUS ([id number]), food expeditor JAYA SIMMONS ([id number]) on 04/15/2023 10:36:03 AM Referred By: Shook Confirmed By:DEMETRIUS BROWN MD
[2023-04-14 02:22] LABS: Troponin-I HS 10 pg/mL (3.0-54.0)
[2023-04-14] MEDS: dilTIAZem CD 120 MG Capsule PO (02:33)
[2023-04-14] MEDS: Aspirin E.C. 81 MG Tablet PO (06:01)
[2023-04-14 06:33] LABS: Bedside Glucose 74 mg/dL (74-106)
[2023-04-14 06:47] LABS: Cholesterol 84 mg/dL (200); High Density Lipoprotein 46 mg/dL; Triglycerides 56 mg/dL; Troponin-I HS 12 pg/mL (3.0-54.0); Very Low Density Lipoprotein 11 mg/dL (5-40)
[2023-04-14 10:26] LABS: Absolute Neutrophil Count 8.8 X10^3/uL (2.0-7.7); Basophil# 0.07 X10^3/uL; Basophil% 0.6 % (0-1); Eosinophil# 0.03 X10^3/uL; Eosinophils% 0.3 % (0-5); Hemoglobin 8.4 g/dL (12.0-15.0); Lymphocyte % 12.9 % (19-41); Mean Corp Hgb Conc 33.6 g/dL (32-36); Mean Corpuscular Hgb 33.5 pg (27.0-32.0); Mean Corpuscular Volume 99.6 fL (81-99); Mean Platelet Vol. 9.6 fl (6.2-12.0); Monocyte# 0.75 X10^3/uL; Monocyte% 6.4 % (0-10); NRBC Flagged by Analyzer 0.2 % (0-5); Neutrophil # 8.77 X10^3/uL (2.7-7.7); Neutrophil % 75.1 % (47-70); Platelet Count 282 K/mm3 (150-450); RBC Distribution Width CV 14.9 % (11.6-14.6); RBC Distribution Width SD 50.4 fl (35.1-43.9); Red Blood Count 2.51 M/mm3 (4.2-5.4); White Blood Count 11.7 K/mm3 (4.4-11.0)
[2023-04-14] MEDS: Cholecalciferol (Vit D3) 125 MCG CAPSULE (5,000 UNITS) PO (11:34)
[2023-04-14 12:11] LABS: Bedside Glucose 101 mg/dL (74-106)
--- NOTE | 2023-04-14 13:58 | CON.PCM.CA_ITS ---
<Statement entered by Mikal Do MD - 04/15/23 13:50> Pt seen & evaluated w/MATIAS. I personally interviewed & exam the pt. I was involved in all aspects of pt's orders, interpretation of results & treatment Documented by User: Patito GOMEZ, PA 04/14/23 14:15 Assessment & Plan Assessment/Plan (1) Chest pain: QUALIFIERS: Chest pain type: unspecified Qualified Code(s): R07.9 - Chest pain, unspecified (2) Atrial fibrillation, new onset: PLAN: Plan * PAF is new, she was symptomatic with this. Echo was done earlier today, this demonstrated an EF of 60%. Stress test was cancelled this morning d/t low Hgb. Hospitalist will repeat Hgb later today, if it is low recommend packed RBCs. If Hgb is normal, will pursue stress test tomorrow morning to evaluate for ischemia. This will need to be a lexiscan as pt ambulates with cane. Will continue with cardizem. Discussed anemia with Dr. Rachel. Since her platelets have remained stable after her first round of chemo he felt it was okay to start Eliquis. Will start low dose Eliquis. 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 Resume current therapy unless chemotherapy agent is deemed to be potentially cardiotoxic. * Hyperlipidemia - Resume statin as previous. HPI Consult Data Date of Consult: 04/14/23 HPI Narrative HPI Narrative: ALMA DELIA MARIN, is a 77 F who presented to [facility] ER for chest pressure and palpitations. Patient was recently started with B-cell lymphoma with primary mets to her spleen and is being followed by Dr. Lombardi. She has undergone 1 round of chemotherapy. Patient notes that she had started with some lower extremity edema, because of this she had an echocardiogram done earlier today which demonstrated a preserved ejection fraction. When she went back to see Dr. Rachel her EKG was noted to be abnormal. He felt that her R wave was changed in V3. He sent over to the emergency room. While in the emergency room she had an episode of paroxysmal atrial fibrillation with RVR. This was a new finding. She was symptomatic with that. Patient states that besides her B-cell lymphoma she is fairly healthy. She is active. She has not had any worsening shortness of breath. She does have some lightheadedness however she felt this was related to her chemotherapy. Troponins were trended. These were negative. Hemoglobin was noted to be 7.9. In talking with Dr. Rachel she typically runs around 9.4. Her platelets have remained stable after her first dose of chemotherapy. [facility] Medical History B-cell lymphoma Home Medications atorvastatin 10 mg tablet 10 mg PO QHS 02/04/23 [History Last Taken Unknown] cholecalciferol (vitamin D3) 125 mcg (5,000 unit) tablet (Vitamin D3) 125 mcg PO DAILY 02/04/23 [History Last Taken Unknown] metformin 1,000 mg tablet 1,000 mg PO BID 02/04/23 [History Last Taken Unknown] apixaban 5 mg tablet (Eliquis) 2.5 mg (1/2 x 5 mg) PO BID #60 tabs 04/15/23 [Rx Last Taken Unknown] diltiazem HCl 120 mg capsule,extended release 24 hr 120 mg PO DAILY #60 caps 04/15/23 [Rx Last Taken Unknown] Allergy/AdvReac Type Severity Reaction Status Date / Time celecoxib [From Celebrex] AdvReac HEADACHE Verified 04/13/23 13:58 Penicillins AdvReac HEADACHE Verified 04/13/23 13:58 Social History Smoking Status: Never smoker ROS ROS Narrative Review of systems: General: Patient denies fevers or chills. HEENT: Denies headache, denies stuffy nose, denies sore throat,changes in vision or discharge from eyes. Resp: Denies cough, denies shortness of breath Cardiac: Patient admits to chest pressure and palpitations GI: Denies abdominal pain, denies changes in bowel, Denies nausea or vomiting : Denies changes in urination Extremity: swelling in feet Musculoskeletal: knee/hip pain Neuro: Denies any numbness/tingling Heme: Denies any bleeding or bruising Skin: Denies rashes Physical Exam Const alert, oriented x3, no apparent distress and healthy appearing Constitutional Narrative: frail HEENT normocephalic, head/scalp atraumatic, hearing grossly normal bilaterally, external ears normal, external nose normal and moist oral mucous membranes Eyes PERRL, EOMs intact bilaterally, conjunctivae normal and no scleral icterus Neck no lymphadenopathy, supple and no JVD Resp normal respiratory effort and clear to auscultation bilaterally Cardio regular rate, regular rhythm, S1 normal heart sound, S2 normal heart sound, no murmurs, no rub, no gallops, no clicks, no JVD and peripheral pulses 2+ throughout GI normal to inspection, nondistended, normoactive bowel sounds, soft to palpation, non-tender and non-distended Extremity normal to inspection, normal capillary refill, no clubbing, cyanosis or edema and no pedal edema Neuro oriented x3, CN's II-XII intact bilaterally, moves all extremities and no focal motor deficits Psych cooperative and affect normal Risk Stratification Risk Stratification Applicable: No Capacity Legal Cobbler Mckay Reflex Medical hold order details:: IF a medical hold is selected below, a suggested order for a MEDICAL HOLD will reflex upon signing the document. Next of kin: [place] law dictates a PRIORITY LIST for identifying legal decision-maker/legal next of kin in the following order (LNOK): 1st: The patient?s legal guardian, if any 2nd: The patient's spouse (if status is questionable, consult Risk Management) 3rd: The patient?s adult child(eliana) (majority, if multiple children) 4th: The patient?s parents 5th: The patient?s adult siblings (majority, if multiple children siblings) Charges/Coding Visit Charges Office Visits / Consults: 93755 IP Consult L3 Objective Data Vital Signs: Vital Signs Temp Pulse Resp BP Pulse Ox O2 Del Method 98 F 89 16 100/59 L 98 Room Air 04/14/23 13:24 04/14/23 13:24 04/14/23 13:24 04/14/23 13:24 04/14/23 13:24 04/14/23 13:24 Oxygen Delivery Method Room Air Weight: 122 lb 2.177 oz Body Mass Index (BMI) 25.5 Intake & Output: Intake and Output for Last 24 Hours 04/12/23 04/13/23 04/14/23 23:59 23:59 23:59 Intake Total 365.00 / 365.00 Balance 365.00 / 365.00 Lab / Micro Data 04/15/23 06:15 04/13/23 18:00 Labs: Laboratory Results - last 24 hr 04/13/23 18:00: WBC 13.5 H, RBC 2.40 L, Hgb 7.9 L, Hct 23.9 L, MCV 99.6 H, MCH 32.9 H, MCHC 33.1, RDW Std Deviation 49.9 H, RDW Coeff of Hardeep 14.5, Plt Count 259, MPV 10.0, Neut % (Auto) Not Reportable, Absolute Neuts (auto) 11.6 H, Absolute Lymphs (auto) 1.49, Total Counted 100, Neutrophils % (Manual) 82 H, Band Neutrophils % 4, Lymphocytes % (Manual) 11 L, Monocytes % (Manual) 2, Eosinophils % (Manual) 1, Diff Path Review July, Platelet Estimate ADEQUATE, Hypochromasia 1+, Anisocytosis 1+, D-Dimer Quant (PE/DVT) 0.73 H*, Sodium 144, Potassium 3.7, Chloride 114 H, Carbon Dioxide 29.0, Anion Gap 1 L, BUN 21 H, Creatinine 0.75, Est GFR (MDRD) Af Amer 96, Est GFR (MDRD) Non-Af 79, BUN/Creatinine Ratio 28.0 H, Glucose 108 H, Calcium 9.1, Troponin I High Sens 10 04/13/23 23:38: Troponin I High Sens 10, TSH 1.18 04/14/23 01:30: Troponin I High Sens 10 04/14/23 05:55: Troponin I High Sens 12, Triglycerides 56, Cholesterol 84, LDL Cholesterol 27, VLDL Cholesterol 11, HDL Cholesterol 46 04/14/23 06:05: POC Glucose 74 04/14/23 10:15: WBC 11.7 H, RBC 2.51 L, Hgb 8.4 L, Hct 25.0 L, MCV 99.6 H, MCH 33.5 H, MCHC 33.6, RDW Std Deviation 50.4 H, RDW Coeff of Hardeep 14.9 H, Plt Count 282, MPV 9.6, Immature Gran % (Auto) 4.700 H, Neut % (Auto) 75.1 H, Lymph % (Auto) 12.9 L, Henry % (Auto) 6.4, Eos % (Auto) 0.3, Baso % (Auto) 0.6, Absolute Neuts (auto) 8.8 H, Absolute Lymphs (auto) 1.50, Nucleated RBC % 0.2 04/14/23 11:32: POC Glucose 101 Cardiology Labs/Tests 04/13/23 18:00: WBC 13.5 H, RBC 2.40 L, Hgb 7.9 L, Hct 23.9 L, MCV 99.6 H, MCH 32.9 H, MCHC 33.1, Plt Count 259, MPV 10.0, Neut % (Auto) Not Reportable, Absolu te Neuts (auto) 11.6 H, Total Counted 100, Neutrophils % (Manual) 82 H, Band Neutrophils % 4, Lymphocytes % (Manual) 11 L, Monocytes % (Manual) 2, Eosinophils % (Manual) 1, D-Dimer Quant (PE/DVT) 0.73 H*, Sodium 144, Potassium 3.7, Chloride 114 H, Carbon Dioxide 29.0, Anion Gap 1 L, BUN 21 H, Creatinine 0.75, Est GFR (MDRD) Af Amer 96, Est GFR (MDRD) Non-Af 79, BUN/Creatinine Ratio 28.0 H, Glucose 108 H, Calcium 9.1 04/14/23 05:55: Triglycerides 56, Cholesterol 84, LDL Cholesterol 27, VLDL Cholesterol 11, HDL Cholesterol 46 04/14/23 10:15: WBC 11.7 H, RBC 2.51 L, Hgb 8.4 L, Hct 25.0 L, MCV 99.6 H, MCH 33.5 H, MCHC 33.6, Plt Count 282, MPV 9.6, Immature Gran % (Auto) 4.700 H, Neut % (Auto) 75.1 H, Lymph % (Auto) 12.9 L, Henry % (Auto) 6.4, Eos % (Auto) 0.3, Baso % (Auto) 0.6, Absolute Neuts (auto) 8.8 H, Nucleated RBC % 0.2 Rhythm: Afib with RVR while in the ER Radiography Diagnostic Testing: Radiology Impression Venous Doppler Study 04/13/23 14:11 Interpretation Summary 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 Deep veins of the right lower extremity are patent and compressible segmentally. There is no evidence of right lower extremity deep vein thrombosis. The right great saphenous vein appears patent and compressible segmentally. Ordering Physician: Gareth Lino Referring Physician: Lizy Jewell M.D. Performed By: Abigail Kikr RVT Chest X-Ray 04/13/23 18:13 IMPRESSION: Elevated left hemidiaphragm and minor basilar atelectasis. Electronically Signed: Leroy Forte MD at 18:36 EST Reading Location ID and State: [id number] Tel , Service support , Chest CTA 04/13/23 19:21 IMPRESSION: ASHD without evidence for acute cardiopulmonary pathology. No evidence for aortic aneurysm or aortic dissection or pulmonary embolus Electronically Signed: Leroy Forte MD at 21:29 EST , Documented by User: Dr. Mikal Do MD 04/15/23 12:21 Assessment & Plan Assessment/Plan (1) Chest pain: QUALIFIERS: Chest pain type: unspecified Qualified Code(s): R07.9 - Chest pain, unspecified (2) Atrial fibrillation, new onset: PLAN: Plan * PAF is new, she was symptomatic with this. Echo was done earlier today, this demonstrated an EF of 60%. Hospitalist will repeat Hgb later today, if it is low recommend packed RBCs. If Hgb is normal, will pursue stress test tomorrow morning to evaluate for ischemia. This will need to be a lexiscan as pt ambulates with cane. Will continue with cardizem. Discussed anemia with Dr. Rachel. Since her platelets have remained stable after her first round of chemo he felt it was okay to start Eliquis. Will start low dose Eliquis. 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 Resume current therapy unless chemotherapy agent is deemed to be potentially cardiotoxic. * Hyperlipidemia - Resume statin as previous. This patient has nuclear stress test/Lexiscan sestamibi Revealed normal myocardial perfusion study with EF in the range of around 71 From cardiac standpoint patient to continue on rate control for A-fib in addition to anticoagulation as recommended by the informatica And to follow-up with the cardiology team as an outpatient. HPI Consult Data Date of Consult: 04/15/23 [facility] Medical History B-cell lymphoma Home Medications atorvastatin 10 mg tablet 10 mg PO QHS 02/04/23 [History Last Taken Unknown] cholecalciferol (vitamin D3) 125 mcg (5,000 unit) tablet (Vitamin D3) 125 mcg PO DAILY 02/04/23 [History Last Taken Unknown] metformin 1,000 mg tablet 1,000 mg PO BID 02/04/23 [History Last Taken Unknown] apixaban 5 mg tablet (Eliquis) 2.5 mg (1/2 x 5 mg) PO BID #60 tabs 04/15/23 [Rx Last Taken Unknown] diltiazem HCl 120 mg capsule,extended release 24 hr 120 mg PO DAILY #60 caps [Rx Last Taken Unknown] Allergy/AdvReac Type Severity Reaction Status Date / Time celecoxib [From Celebrex] AdvReac HEADACHE Verified 04/13/23 13:58 Penicillins AdvReac HEADACHE Verified 04/13/23 13:58 Social History Smoking Status: Never smoker Lab / Micro Data 04/15/23 06:15 04/13/23 18:00
[2023-04-14 16:43] LABS: Hematocrit 22.8 % (37-47); Hemoglobin 7.4 g/dL (12.0-15.0)
--- NOTE | 2023-04-14 18:03 | CASEMGMT ---
Met with?patient ?to complete JOHNSON form. JOHNSON form explained to?patient who voiced understanding and signed form. Original form placed in pt?s chart and copy provided to?patient. Sunitha Fang, Discharge Planning Asst
[2023-04-14] MEDS: Insulin Lispro 100 UNIT/ML INSULN.PEN SC ×2 (18:05→23:46)
--- NOTE | 2023-04-14 19:11 | PCM.PN.HOSP ---
Reason for Visit Reason for Visit: Diagnoses Paroxysmal atrial fibrillation (04/13/23) Unspecified atrial fibrillation (04/13/23) Chest pain, unspecified (04/13/23) Subjective Subjective Patient was seen and examined today, I talked with cardiology briefly today, her stress test was canceled due to an anemia this morning, the anemia was rechecked however and it was above 8 which is the cutoff range for the stress test. Patient then had another hemoglobin done this afternoon and it was 7.4. I have chosen to transfuse her 2 units of packed red blood cells. Patient remains in normal sinus rhythm at this time, echocardiogram showed a normal EF. Objective Data Objective Data Vital Signs: Vital Signs Temp Pulse Resp BP Pulse Ox O2 Del Method 98.3 F 87 16 91/60 97 Room Air 04/14/23 18:07 04/14/23 18:07 04/14/23 18:07 04/14/23 18:07 04/14/23 18:07 04/14/23 18:07 Oxygen Delivery Method Room Air Weight: 55.4 kg Body Mass Index (BMI) 25.5 Intake & Output: Intake and Output for Last 24 Hours 04/12/23 04/13/23 04/14/23 23:59 23:59 23:59 Intake Total 1165.00 / 1165.00 Balance 1165.00 / 1165.00 Lab / Micro Data 04/14/23 16:28 04/13/23 18:00 Labs: Laboratory Results - last 24 hr 04/13/23 18:00: D-Dimer Quant (PE/DVT) 0.73 H* 04/13/23 23:38: Troponin I High Sens 10, TSH 1.18 04/14/23 01:30: Troponin I High Sens 10 04/14/23 05:55: Troponin I High Sens 12, Triglycerides 56, Cholesterol 84, LDL Cholesterol 27, VLDL Cholesterol 11, HDL Cholesterol 46 04/14/23 06:05: POC Glucose 74 04/14/23 10:15: WBC 11.7 H, RBC 2.51 L, Hgb 8.4 L, Hct 25.0 L, MCV 99.6 H, MCH 33.5 H, MCHC 33.6, RDW Std Deviation 50.4 H, RDW Coeff of Hardeep 14.9 H, Plt Count 282, MPV 9.6, Immature Gran % (Auto) 4.700 H, Neut % (Auto) 75.1 H, Lymph % (Auto) 12.9 L, [place] % (Auto) 6.4, Eos % (Auto) 0.3, Baso % (Auto) 0.6, Absolute Neuts (auto) 8.8 H, Absolute Lymphs (auto) 1.50, Nucleated RBC % 0.2 04/14/23 11:32: POC Glucose 101 04/14/23 16:28: Hgb 7.4 L, Hct 22.8 L Radiography Diagnostic Testing: Radiology Impression Chest CTA 04/13/23 19:21 IMPRESSION: ASHD without evidence for acute cardiopulmonary pathology. No evidence for aortic aneurysm or aortic dissection or pulmonary embolus Electronically Signed: Leroy Forte MD at 21:29 EST Reading Location ID and State: [address] [place] [address] Tel , Service support , Physical Exam Const alert, oriented x3, no apparent distress and healthy appearing General Appearance: cooperative, well kempt and well developed Orientation / Consciousness: awake, oriented to person, oriented to place and oriented to time HEENT normocephalic, head/scalp atraumatic and moist oral mucous membranes HEENT Narrative: Patient is bald secondary to chemotherapy Head and Scalp: normocephalic Eyes PERRL, EOMs intact bilaterally and conjunctivae normal Neck supple, no JVD, thyroid normal and no carotid bruits General: trachea midline Resp normal respiratory effort, no retractions, no use of accessory muscles and clear to auscultation bilaterally Auscultation: Negative for rales, rhonchi or wheezes Cardio regular rate, regular rhythm, S1 normal heart sound, S2 normal heart sound, no murmurs, no rub and no gallops GI normal to inspection, nondistended, normoactive bowel sounds, soft to palpation, non-tender and non-distended Extremity no clubbing, cyanosis or edema Skin no rashes or lesions noted General Skin Exam: no breakdown Neuro oriented x3, CN's II-XII intact bilaterally, moves all extremities, no focal motor deficits and no sensory deficits noted Sensorium / Orientation: awake and alert Speech: speech normal Psych affect normal Assessment & Plan Assessment/Plan (1) Paroxysmal A-fib: PLAN: Plan 1. Chest pain-patient will be given packed red blood cells and undergo a resting stress test tomorrow #2 paroxysmal [id number] is in normal sinus rhythm at this time #3 B-cell lymphoma with resultant anemia secondary to chemotherapy and anemia of chronic disease-patient will receive 2 units of packed red blood cells, CBC will be repeated tomorrow morning #4 type 2 diabetes-patient's blood sugars will be monitored with Accu-Cheks and she will receive sliding scale insulin as indicated. #5 hyperlipidemia-patient is currently on a statin Total clinical time spent by myself addressing the patient's medical issues, reviewing all of her data, and collaborating with patient's care team: 35 minutes Capacity Legal It Programmer Analyst Reflex Medical hold order details:: IF a medical hold is selected below, a suggested order for a MEDICAL HOLD will reflex upon signing the document. Next of kin: [place] law dictates a PRIORITY LIST for identifying legal decision-maker/legal next of kin in the following order (LNOK): 1st: The patient?s legal guardian, if any 2nd: The patient's spouse (if status is questionable, consult Risk Management) 3rd: The patient?s adult child(eliana) (majority, if multiple children) 4th: The patient?s parents 5th: The patient?s adult siblings (majority, if multiple children siblings) Charges/Coding Visit Charges Inpatient E&M: 25437 Subs Hosp L2
[2023-04-14 19:41] LABS: Bedside Glucose 181 mg/dL (74-106)
[2023-04-14 19:41] LABS: Bedside Glucose 196 mg/dL (74-106)
[2023-04-14] MEDS: Atorvastatin Calcium 10 MG Tablet PO (23:41)
[2023-04-15] VITALS (7 sets, daily range): BP systolic 97–110; BP diastolic 66–73; PULSE 72–112; RESP 14–17; TEMP 36.6–37.1; O2SAT 94–98
[2023-04-15 00:06] LABS: Bedside Glucose 249 mg/dL (74-106)
--- NOTE | 2023-04-15 05:55 | EKG12_ITS ---
Test Reason : pre op Blood Pressure : / mmHG Vent. Rate : 070 BPM Atrial Rate : 070 BPM P-R Int : 190 ms QRS Dur : 068 ms QT Int : 412 ms P-R-T Axes : 058 036 060 degrees QTc Int : 444 ms Normal sinus rhythm Low voltage QRS Borderline ECG When compared with ECG of 14-APR-2023 02:09, MANUAL COMPARISON REQUIRED, DATA IS UNCONFIRMED Confirmed by KEVIN YANG, DEMETRIUS ([id number]), field map editor JAYA SIMMONS ([id number]) on 04/15/2023 1:33:10 PM Referred By: Confirmed By:DEMETRIUS BROWN MD
[2023-04-15] MEDS: Aspirin E.C. 81 MG Tablet PO (06:32)
[2023-04-15 06:51] LABS: Bedside Glucose 100 mg/dL (74-106)
[2023-04-15 07:07] LABS: Hematocrit 30.9 % (37-47); Hemoglobin 10.3 g/dL (12.0-15.0)
[2023-04-15] MEDS: Cholecalciferol (Vit D3) 125 MCG CAPSULE (5,000 UNITS) PO (10:20)
[2023-04-15] MEDS: dilTIAZem CD 120 MG Capsule PO (10:20)
[2023-04-15] MEDS: APIXABAN 2.5 MG TABLET (WCH) PO (10:38)
[2023-04-15 12:00] LABS: Bedside Glucose 172 mg/dL (74-106)
--- NOTE | 2023-04-15 12:05 | PCM.DC ---
Discharge Instructions Diet Discharge Diet: No restrictions Activity Discharge Activity: Return to Normal Activity Weight Bearing Status: Weight bearing as tolerated Follow Up Care Test Results: Test results from this visit will be discussed in further detail at your follow-up appointment, if applicable. Discharge Plan Admission Admit Date/Time: 04/13/23 22:48 Primary Reason for Your Visit: a-fib, chest pain Attending Provider: Ar Freire Primary Care Provider: Lizy Jewell Consulting Providers: Aimee Anne; Richard Munoz; Alexandro Mandujano; Frank Bansal; Mariano Dow; Jona Guthrie; Robin Palacio; Arron Ramirez; Mikal Do; Kartik Yepez; Bowen Garsia; Marcell Etienne; Mando Adams; Alfonso Díaz; Nadir Gary; Isaiah Acosta; Jose Guadalupe Marks; Addi Mujica NP; Aimee Sampson NP; Patito Murray; Genaro Shook Discharge Orders/Prescriptions Prescriptions: New diltiazem HCl 120 mg Capsule,Extended Release 24hr 120 mg PO DAILY Qty: 60 0RF Eliquis 5 mg Tablet 2.5 mg PO BID Qty: 60 0RF Continued metformin 1,000 mg tablet 1,000 mg PO BID atorvastatin 10 mg tablet 10 mg PO QHS cholecalciferol (vitamin D3) [Vitamin D3] 125 mcg (5,000 unit) tablet 125 mcg PO DAILY Referrals / Follow Up: Lizy Jewell MD [Primary Care Provider] - Aimee Sampson NP, WASHING MACHINE LOADER-C [Non-Staff -Ordering Privileges] - 06/14/23 9:30 am Disposition Disposition (needs filled in before D/C Order can be placed): Home, Self Care
--- NOTE | 2023-04-15 12:11 | PCM.DC.SUM ---
Providers Date of Admission: 04/13/23 Date of Discharge: 04/15/23 Primary Care Physician: Dr. Lizy Jewell MD Consultations 04/14/23 00:30 Consult: Cardiology Routine Consulting Provider: [facility] Reason for Consult: Chest Pain and PAF; wih RVR EMERGENT Consult: No MD Notified: Yes Date Notified: 04/14/23 Time Notified: 06:37 Method of Notification: Text Method of Consult:: In-Person Reason For Visit: PAF WITH RVR AND CHEST PAIN Diagnosis Discharge Diagnosis (1) Paroxysmal A-fib: Status: Acute Code(s): I48.0 - Paroxysmal atrial fibrillation Plan 1. 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 #5 hyperlipidemia-patient is currently on a statin Total clinical time spent by myself addressing the patient's medical issues, reviewing all of her data, and collaborating with patient's care team: 35 minutes Medications at Discharge Home Medications atorvastatin 10 mg tablet 10 mg PO QHS cholesterol 02/04/23 cholecalciferol (vitamin D3) 125 mcg (5,000 unit) tablet (Vitamin D3) 125 mcg PO DAILY vitamin 02/04/23 metformin 1,000 mg tablet 1,000 mg PO BID diabetes 02/04/23 apixaban 5 mg tablet (Eliquis) 2.5 mg (1/2 x 5 mg) PO BID #60 tabs 04/15/23 diltiazem HCl 120 mg capsule,extended release 24 hr 120 mg PO DAILY #60 caps 04/15/23 Hospital Course Operations None Procedures 2-D Echocardiogram, Blood transfusion and Stress test Summary of Care Provided Minutes Spent on Discharge: 32 Hospital Course: This 77-year-old white female was seen in the emergency room at [facility] complaining of chest pain which was intermittent over the past 2 weeks since she started chemotherapy for B-cell lymphoma. Patient had an echocardiogram performed prior to being seen in the emergency room but the read out was not available to review. Venous study of the lower extremities was performed, there was a chronic superficial vein thrombosis in the right small saphenous vein there is no evidence of deep venous thrombosis. Patient's chest x-ray showed elevated left hemidiaphragm and monitor basilar atelectasis. CTA of the chest was negative for aortic aneurysm or pulmonary embolus. Patient had an EKG performed which Initially showed a normal sinus rhythm, repeat EKG was obtained which showed atrial fibrillation with RVR at 118. Patient was placed in observation status on PCU, he was started on oral Cardizem and given full dose Lovenox, cardiology was consulted, stress test was ordered. The following morning, it was noted that the patient's hemoglobin was low on admission at 7.9, her stress test was canceled, patient converted to normal sinus rhythm, patient's hemoglobin was repeated and was 7.4, cardiology stated that they wanted her hemoglobin above 8 and I gave the patient 2 units of packed red blood cells and she underwent a nuclear stress test that was negative for reversible ischemia. On 04/15/2023, patient was seen and examined: On examination she appeared in good health and spirits, she does not appear to be in any distress. Vital signs as documented. Skin warm and dry and without overt rashes. Neck without JVD, thyroid appears normal, trachea is midline, neck is supple. Patient is bald. Lungs clear, normal air movement was noted. Heart exam notable for regular rhythm, normal sounds and absence of murmurs, rubs or gallops. Abdomen unremarkable and without evidence of organomegaly, masses, or abdominal aortic enlargement, bowel sounds are present in all 4 quadrants, no abdominal tenderness was noted. Extremities nonedematous, no cyanosis was noted, no clubbing was noted. Neuro: Cranial nerves II through XII are grossly intact, no focal motor deficits were noted, sensation to light touch and pinprick is intact, motor exam 5/5 throughout. Psych: Patient is alert and oriented x3, she does not appear anxious or depressed, she does not appear agitated. On 04/15/2023, patient was seen and examined and felt to be in stable condition for for discharge from the hospital. Weight / BMI Weight Weight: 55.4 kg Body Mass Index (BMI) 25.5 ABG / Lab / Microbiology Data 04/15/23 06:15 04/13/23 18:00 Laboratory: Laboratory Results - last 24 hr 04/14/23 11:32: POC Glucose 101 04/14/23 16:28: Hgb 7.4 L, Hct 22.8 L 04/14/23 17:57: POC Glucose 181 H 04/14/23 17:58: POC Glucose 196 H 04/14/23 20:10: Blood Type A POSITIVE, Antibody Screen NEGATIVE, Crossmatch See Detail 04/14/23 23:45: POC Glucose 249 H 04/15/23 06:15: Hgb 10.3 L, Hct 30.9 L 04/15/23 06:32: POC Glucose 100 04/15/23 11:15: POC Glucose 172 H D/C Instructions Discharge Diet: No restrictions Weight Bearing Status: Weight bearing as tolerated Meaningful Use Info Meaningful Use Diagnoses (Choose all that apply): None applicable Discharge Plan Admission Admit Date/Time: 04/13/23 22:48 Primary Reason for Your Visit: a-fib, chest pain Attending Provider: Ar Freire Primary Care Provider: Lizy Jewell Consulting Providers: Aimee Anne; Richard Munoz; Alexandro Mandujano; Frank Bansal; Mariano Dow; Jona Guthrie; Robin Palacio; Arron Ramirez; Mikal Do; Kartik Yepez; Bowen Garsia; Marcell Etienne; Mando Adams; Alfonso Díaz; Nadir Gary; Isaiah Acosta; Jose Guadalupe Marks; Addi Mujica NP; Aimee Sampson NP; Patito Murray; Genaro Shook Discharge Orders/Prescriptions Prescriptions: New diltiazem HCl 120 mg Capsule,Extended Release 24hr 120 mg PO DAILY Qty: 60 0RF Eliquis 5 mg Tablet 2.5 mg PO BID Qty: 60 0RF Continued metformin 1,000 mg tablet 1,000 mg PO BID atorvastatin 10 mg tablet 10 mg PO QHS cholecalciferol (vitamin D3) [Vitamin D3] 125 mcg (5,000 unit) tablet 125 mcg PO DAILY Referrals / Follow Up: Lizy Jewell MD [Primary Care Provider] - Aimee Sampson CONTINUITY COORDINATOR, CONTINUITY COORDINATOR-C [Non-Staff -Ordering Privileges] - 06/14/23 9:30 am Disposition Disposition (needs filled in before D/C Order can be placed): Home, Self Care Charges/Coding Visit Charges Inpatient E&M: 00032 Disch Hosp >30min
--- NOTE | 2023-04-15 14:27 | CASEMGMT ---
Patient has order for discharge. Patient discharging on Mikie Rodriguez called and copay is $97. RN CM in to discuss needs at discharge and updated regarding copay. Savings card provided to patient. Patient denies needs or help at discharge. Patient had no further questions or at this.
[2023-04-15 14:51] LABS: Pathologist Review Reviewed
--- NOTE | 2023-04-15 14:58 | STRESSREP ---
Stress Test Report Pharmacologic Lexiscan myocardial perfusion stress test. Indication; 78-year-old female presented with symptoms of palpitation and chest discomfort. Had a history of paroxysmal A-fib she was in sinus rhythm. Stress protocol: 0.4 mg of regadenoson was infused per usual protocol followed by rapid intravenous saline flush injection continuous EKG monitoring was performed. The maximum heart rate attained was 92 bpm which was 64% of maximum predicted heart . Resting EKG showed normal sinus rhythm. Stress EKG showed[, no significant change from the resting EKG, with maximum heart rate of 92 bpm. Arrhythmia: No arrhythmia demonstrated Symptoms: Patient had no symptoms of chest pain Blood pressure at rest: 122/84 mmHg blood pressure at the end of stress: 122/84 mmHg Myocardial perfusion protocol. 11.1 mCi ]of Technetium 99m Sestamibi was injected at rest. [ 0.4 mg ]of Regadenoson was infused per usual protocol peak infusion 34.4 mCi ]of Technetium 99m sestamibi was injected. Stress images were obtained stress and rest images were reconstructed and compared in the short axis vertical and horizontal long axis. Gated images were also obtained Perfusion SPECT analysis: Review of the images demonstrate normal uptake of sestamibi at rest, post stress images demonstrate similar uptake of sestamibi to the resting images, homogeneous tracer uptake With no evidence of reversible myocardial ischemia. Gated SPECT analysis: The gated ejection fraction is 71%. Normal LV wall motion with normal LV systolic function Conclusion: Negative Lexiscan sestamibi myocardial perfusion study for reversible myocardial ischemia Normal LV systolic function No symptoms of chest pain and no significant abnormality noted in the EKG Mikal Do MD,FACC,[facility] [place]
[2023-04-15] MEDS: 0.9% Saline Lock 10 ML Syringe IV (15:27)
== END 2023-04-15 12:11 | disposition home or self-care (01) ==
LOC: ED 22:11 → PCU 23:20
PROVIDERS: Admitting Provider Internal Medicine; Emergency Provider Emergency Medicine; PCP Internal Medicine; Visit Provider Internal Medicine
DX: I48.0 Paroxysmal atrial fibrillation (principal); C78.89 Secondary malignant neoplasm of other digestive organs; C85.10 Unspecified B-cell lymphoma, unspecified site; E11.9 Type 2 diabetes mellitus without complications; I82.811 Embolism and thrombosis of superficial veins of right lower extremity; Z79.84 Long term (current) use of oral hypoglycemic drugs; E78.5 Hyperlipidemia, unspecified; Z79.899 Other long term (current) drug therapy; D64.81 Anemia due to antineoplastic chemotherapy; D63.8 Anemia in other chronic diseases classified elsewhere
CPT/HCPCS: 36415; 36430; 36591; 71045; 71275; 78452; 80048; 80061; 82962; 84443; 84484; 85014; 85018; 85025; 85379; 86850; 86900; 86901; 86920; 86922; 93005; 93017; 93971; 96365; 96372; 96375; 97802; 99221; 99285; A9500; J7040; P9016; Q9967; A4216; G0378; J2785

== ENCOUNTER → 2023-04-13 | Outpatient (CLI) | payer MEDICARE, SELFPAY ==
--- NOTE | 2023-04-13 11:00 | ECHOD_ITS ---
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 Myocardial strain analysis was performed in this exam to aid in the assessment of cardiac function. Exam performed in department. Left Ventricle Normal LV size. Sigmoid septum. Left ventricular systolic function is normal. The estimated ejection fraction is 60 %. Stage 1 diastolic dysfunction. No regional wall motion abnormalities noted. Right Ventricle Normal RV size. Normal systolic function. Atria Normal left atrium. Normal right atrium. Patent foramen ovale. Mitral Valve Mild diffuse mitral valve thickening. Mild (1+) eccentric mitral valve insufficiency. Tricuspid Valve Normal tricuspid valve. Mild (1+) tricuspid valve insufficiency. Pulmonary artery systolic pressure is 24 mmHg. Aortic Valve Trisinus/trileaflet aortic valve. Mild focal aortic valve thickening. Pulmonic Valve Normal pulmonic valve. Great Vessels Normal aortic root. Pericardium/Pleural No pericardial effusion. Medication 22 gauge I.V. with prn adaptor inserted into right arm. Performed a rapid injection of agitated mix of 9 cc saline and 1cc air to assess for atrial septal defect. MMode/2D Measurements & Calculations LVIDd: 3.7 cm IVSd: 1.2 cm Ao root diam: 3.6 cm LVIDs: 1.9 cm LVPWd: 0.91 cm RVDd: 3.0 cm FS: 49.5 % LAV(MOD-bp): 68.5 ml LVAd ap4: 25.7 cm2 LVAd ap2: 24.6 cm2 LAV(MOD-bp) Indexed: 47.2 ml/m2 LVLd ap4: 7.5 cm LVLd ap2: 7.4 cm LAV(MOD-sp2): 75.9 ml EDV(MOD-sp4): 70.0 ml EDV(MOD-sp2): 67.8 ml LAV(MOD-sp4): 61.4 ml EDV(sp4-el): 74.9 ml EDV(sp2-el): 70.0 ml LVAs ap4: 14.2 cm2 LVAs ap2: 13.5 cm2 LVLs ap4: 5.9 cm LVLs ap2: 6.2 cm ESV(MOD-sp4): 28.4 ml ESV(MOD-sp2): 24.6 ml ESV(sp4-el): 28.9 ml ESV(sp2-el): 25.0 ml EF(MOD-sp4): 59.5 % EF(MOD-sp2): 63.7 % EF(sp4-el): 61.4 % SV(MOD-sp4): 41.6 ml SV(MOD-sp2): 43.2 ml SV(sp4-el): 46.0 ml LA A4 area: 20.9 cm2 LA dimension(2D): 3.7 cm RA A4 area: 13.0 cm2 Time Measurements MV dec time: 0.18 sec Doppler Measurements & Calculations MV E max christian: 66.1 cm/sec Lat Peak E' Christian: 11.5 cm/sec Med Peak E' Christian: 6.1 cm/sec MV A max christian: 92.6 cm/sec E/E' lat: 5.8 E/E' med: 10.9 MV E/A: 0.71 Ao V2 max: 164.2 cm/sec LV V1 max: 117.1 cm/sec MV dec slope: 362.7 cm/sec2 Ao max P.8 mmHg LV V1 max P.5 mmHg Ao V2 mean: 121.7 cm/sec LV V1 mean P.2 mmHg Ao mean P.4 mmHg LV V1 mean: 84.6 cm/sec Ao V2 VTI: 32.2 cm LV V1 VTI: 21.1 cm AV (velocity ratio): 0.66 PA V2 max: 99.9 cm/sec TR max christian: 234.0 cm/sec TR max P.9 mmHg ECHO/Echo Complete Interpretation Summary Normal LV size. Left ventricular systolic function is normal. The estimated ejection fraction is 60 %. Stage 1 diastolic dysfunction. The global longitudinal strain is normal. The global longitudinal strain = -18. 4 % (normal). Ordering Physician: Alfonso Rachel Referring Physician: Lizy Jewell M.D. Performed By: Cande Mujica, KOBY, RVT
== END | disposition home or self-care (01) ==
PROVIDERS: PCP Internal Medicine; Referring Provider Internal Medicine Hematology & Oncology; Visit Provider Internal Medicine Hematology & Oncology
DX: C83.37 Diffuse large B-cell lymphoma, spleen (principal); R07.89 Other chest pain; Z51.81 Encounter for therapeutic drug level monitoring; Z79.899 Other long term (current) drug therapy
CPT/HCPCS: 93306; A4216

== ENCOUNTER 2023-05-19 10:04 | Outpatient (CLI) | payer MEDICARE, SELFPAY ==
[2023-05-19 10:28] VITALS: BP 119/70; PULSE 70; RESP 16; TEMP 35.9; O2SAT 99; BMI 24.8
[2023-05-19] MEDS: 0.9 % NaCl (Sterile) Posiflush 10 mL IV (10:32)
[2023-05-19] MEDS: 0.9% Normal Saline (500mL Bag) 500 ML 15 ML IV (10:33)
[2023-05-19 10:53] VITALS: BP 100/55; PULSE 67; RESP 16; TEMP 36.8
[2023-05-19 11:53] VITALS: BP 108/55; PULSE 67; RESP 16; TEMP 36.6
[2023-05-19 12:27] VITALS: BP 121/66; PULSE 70; RESP 16; TEMP 36.6; O2SAT 100
[2023-05-19] MEDS: 0.9% NaCl VAD Flush IV (12:45)
== END 2023-05-19 10:05 | disposition home or self-care (01) ==
LOC: MEDOUTP 10:05
PROVIDERS: PCP Internal Medicine; Referring Provider Internal Medicine Hematology & Oncology; Visit Provider Internal Medicine Hematology & Oncology
DX: D64.81 Anemia due to antineoplastic chemotherapy (principal); T45.1X5A Adverse effect of antineoplastic and immunosuppressive drugs, initial encounter; X58.XXXA Exposure to other specified factors, initial encounter
CPT/HCPCS: 36430; 86850; 86900; 86901; 86920; 86922; J7040; P9016; A4216

== ENCOUNTER 2023-06-21 12:39 | Emergency (ER) | payer MEDICARE, SELFPAY ==
[2023-06-21 12:39] VITALS: BP 121/51; PULSE 68; RESP 12; O2SAT 100
[2023-06-21 12:40] VITALS: BP 121/51; PULSE 65; RESP 12; TEMP 35.6; O2SAT 100
[2023-06-21 13:39] VITALS: BP 98/55; PULSE 62; RESP 18; O2SAT 98
--- NOTE | 2023-06-21 13:54 | EKG12_ITS ---
Test Reason : HIGH POTASSIUM Blood Pressure : / mmHG Vent. Rate : 067 BPM Atrial Rate : 067 BPM P-R Int : 206 ms QRS Dur : 066 ms QT Int : 414 ms P-R-T Axes : 057 038 052 degrees QTc Int : 437 ms Normal sinus rhythm Low voltage QRS Borderline ECG Confirmed by KEVIN YANG, DEMETRIUS ([id number]), medical editor CAMACHO EDWARD ([id number]) on 06/22/2023 9:33:15 AM Referred By: OLAF/ELIZABETH Confirmed By:DEMETRIUS BROWN MD
[2023-06-21 14:00] VITALS: BP 98/55; PULSE 82; RESP 16; O2SAT 95
[2023-06-21] MEDS: 0.9% Normal Saline (1000mL) 1,000 ML 999 ML IV (14:02)
[2023-06-21 14:13] LABS: Anion Gap 8 (5-15); BUN 33 mg/dL (7-18); BUN/Creat Ratio 44.7 RATIO (10-20); Calcium,Total 9.1 mg/dL (8.5-10.1); Chloride 113 mmol/L (98-107); Creatinine, Serum 0.74 mg/dL (0.55-1.02); EST Glomerular Filtration Rate 81 mL/min (>60); Est Glom Filt Rate - Afr Amer 98 mL/min (>60); Glucose 96 mg/dL (74-106); Magnesium 1.9 mg/dL (1.6-2.6); Potassium 5.2 mmol/L (3.5-5.1); Sodium Level 143 mmol/L (136-145)
--- NOTE | 2023-06-21 14:30 | EX.ED.DYSGE1 ---
HPI History of Present Illness Chief Complaint: Abn Labs Informant: patient and other (Oncology (Dr. Rachel)) Narrative Narrative: 77-year-old female currently undergoing treatment for large B-cell lymphoma with Dr. Rachel. She is set to begin her fourth round of chemotherapy this week. She was in the office today for evaluation prior to start of therapy. A CMP was ordered that returned with a potassium of 6.1. Dr. Rachel states that he called the lab and they reran and off that specimen and it was 6.1. He redrew a BMP which returned with a potassium of 5.8 creatinine 0.82. He states that they checked an EKG that showed more prominent T waves than before. It is noted that the patient is on metoprolol 50 mg twice daily for atrial fibrillation. He reports that the patient feels fine and she does agree with this. She denies taking any extra recent doses of metoprolol. She has not had a problems in the past with potassium. No known magnesium issues. She states she has been urinating fine. She is hungry. [facility] Medical History Abdominal mass Atrial fibrillation, new onset B-cell lymphoma Controlled type 2 diabetes mellitus without complication Diffuse large b-cell lymphoma, spleen Hypercalcemia Hyperlipidemia associated with type 2 diabetes mellitus Idiopathic progressive neuropathy Osteoarthritis Rheumatoid arthritis Home Medications atorvastatin 10 mg tablet 10 mg PO QHS cholesterol 02/04/23 [History Last Taken Unknown] metformin 1,000 mg tablet 1,000 mg PO BID diabetes 02/04/23 [History Last Taken Unknown] apixaban 5 mg tablet (Eliquis) 2.5 mg (1/2 x 5 mg) PO BID #60 tabs 04/15/23 [Rx Last Taken Unknown] allopurinol 300 mg tablet 300 mg PO DAILY 05/19/23 [History Last Taken Unknown] cholecalciferol (vitamin D3) 125 mcg (5,000 unit) tablet (Vitamin D3) 2,000 unit PO DAILY vitamin 05/19/23 [History Last Taken Unknown] lactobacillus iqrog-jtocwg-jgmkbctv protein 15 billion cell-170 mg cap 1 cap PO DAILY 05/19/23 [History Last Taken Unknown] metoprolol tartrate 50 mg tablet (Lopressor) 50 mg PO DAILY 05/19/23 [History Last Taken Unknown] multivitamin 1 tab PO DAILY 05/19/23 [History Last Taken Unknown] Allergy/AdvReac Type Severity Reaction Status Date / Time celecoxib [From Celebrex] AdvReac HEADACHE Verified 06/21/23 12:44 Penicillins AdvReac HEADACHE Verified 06/21/23 12:44 Surgical History Hx of carpal tunnel repair S/P bilateral hip replacements S/P total knee replacement Social History Smoking Status: Never smoker ROS ROS ED Constitutional Constitutional ED: Denies chills or weight loss Eyes Eyes: Denies change in vision or diplopia ENT ENT ED: Denies ear pain, rhinorrhea or sore throat Cardiovascular Cardiovascular: Denies chest pain, orthopnea, palpitations or racing heartbeat Respiratory/Chest Respiratory/Chest: Denies cough, dyspnea or orthopnea Gastrointestinal Gastrointestinal: Denies abdominal pain, diarrhea, nausea or vomiting Genitourinary Genitourinary ED: Denies dysuria, hematuria or urinary frequency Musculoskeletal Musculoskeletal: Denies arthralgias or myalgias Integumentary Denies abscess or rash Neurologic Neurologic: Denies headache(s) or weakness Psychiatric Psychiatric: Denies anxiety, depression, suicidal ideation or suicidal thoughts Endocrine Endocrinology: Denies polydipsia, polyphagia or polyuria Allergic/Immunologic Allergic/Immunologic ED: Denies mouth swelling, tongue swelling or urticaria EXAM Physical Exam Const Vital Signs: 06/21/23 12:40 06/21/23 12:39 06/21/23 13:39 Temperature 96.1 F L Temperature Source Temporal Pulse Rate 65 68 62 Respiratory Rate 12 12 18 Blood Pressure 121/51 H 121/51 H 98/55 L Blood Pressure Mean 74 74 69 Pulse Ox 100 100 98 Oxygen Delivery Method Room Air Room Air 06/21/23 14:00 Temperature Temperature Source Pulse Rate 82 Respiratory Rate 16 Blood Pressure 98/55 L Blood Pressure Mean 69 Pulse Ox 95 Oxygen Delivery Method Room Air Positive well nourished and well developed General Appearance ED: well developed HEENT Reports normocephalic, head/scalp atraumatic and moist mucous membranes Eyes PERRL and EOMs intact bilaterally Neck no lymphadenopathy, supple and no JVD Resp normal respiratory effort and clear to auscultation bilaterally Cardio regular rate, regular rhythm and no murmurs GI normal to inspection, nondistended, normoactive bowel sounds and non-tender Palpation: soft Back/Spine no CVA tenderness and normal ROM Extremity normal to inspection General Extremety ED: Negative for edema General Extremity: Negative for edema Neuro oriented x3 and CN's II-XII intact bilaterally Sensorium / Orientation: alert Motor Exam: strength 5/5 throughout Psych mental status grossly normal Mood & Affect: Negative for depressed or tearful Skin no rashes or lesions noted and no wounds MDM MDM MDM Narrative Medical decision making narrative: Our potassium today is 5.2 chloride 113 sodium 143. Retinae 0.74. Magnesium levels 1.9 glucose of 96. I compared the EKG done here per nursing protocol to EKG dated 15 April 2023. I do not appreciate any changes in terms of the T waves or significant changes in QRS/QT intervals. Patient received a liter of IV fluids. Shared decision making was utilized to come up with treatment plan. This point her potassium was 5.2. There is no EKG changes and she is otherwise asymptomatic. We talked about giving a dose of Kayexalate but Kayexalate is not without potential. She preferred to not additional medicines unless needed. I think that this is very reasonable. At this point patient appears hydrated. She has normal kidney function at this time. Potassium is a minimally elevated with no EKG changes. I think the patient can go home and follow-up with her doctors History & Record Review Discussion w/independent historian: Patient Lab Data Attestation: I reviewed the patient's lab results. Labs: Laboratory Results - last 24 hr 06/21/23 13:14 Sodium 143 Potassium 5.2 H Chloride 113 H Carbon Dioxide 22.0 Anion Gap 8 BUN 33 H Creatinine 0.74 Est GFR (MDRD) Af Amer 98 Est GFR (MDRD) Non-Af 81 BUN/Creatinine Ratio 44.7 H Glucose 96 Calcium 9.1 Magnesium 1.9 Discharge Plan Triage Chief Complaint: Abn Labs ED Provider: Bossman Gallegos Dx/Rx/DC Orders Clinical Impression: Diffuse large b-cell lymphoma, spleen, Controlled type 2 diabetes mellitus without complication, Acute hyperkalemia Instructions: ED Hyperkalemia Prescriptions: No Action multivitamin Tablet 1 tab PO DAILY metformin 1,000 mg tablet 1,000 mg PO BID atorvastatin 10 mg tablet 10 mg PO QHS cholecalciferol (vitamin D3) [Vitamin D3] 125 mcg (5,000 unit) tablet 2,000 unit PO DAILY Eliquis 5 mg Tablet 2.5 mg PO BID Qty: 60 0RF btlkqfwl-[id number]-pwhk pr con 15 billion cell-170 mg capsule 1 cap PO DAILY metoprolol tartrate [Lopressor] 50 mg tablet 50 mg PO DAILY allopurinol 300 mg tablet 300 mg PO DAILY Primary Care Provider: Lizy Jewell Referrals: Lizy Jewell MD [Primary Care Provider] - As Needed Alfonso Rachel DO [Med Staff - Active Staff] - Keep Devonte appointment Disposition Disposition: Home, Self Care
[2023-06-21 15:00] VITALS: BP 98/48; PULSE 83; RESP 17; O2SAT 95
[2023-06-21 15:14] VITALS: BP 98/48; PULSE 84; RESP 17; TEMP 36.2; O2SAT 95
== END 2023-06-21 16:05 | disposition home or self-care (01) ==
PROVIDERS: Emergency Provider Emergency Medicine; PCP Internal Medicine; Visit Provider Emergency Medicine
DX: E87.5 Hyperkalemia (principal); C83.37 Diffuse large B-cell lymphoma, spleen; M06.9 Rheumatoid arthritis, unspecified; I48.91 Unspecified atrial fibrillation; E11.9 Type 2 diabetes mellitus without complications; Z79.01 Long term (current) use of anticoagulants; Z79.84 Long term (current) use of oral hypoglycemic drugs; Z79.899 Other long term (current) drug therapy
CPT/HCPCS: 36591; 80048; 83735; 93005; 96360; 99285; J7030; A4216

== ENCOUNTER 2023-07-01 07:51 | Outpatient (CLI) | payer MEDICARE, SELFPAY ==
[2023-07-01 08:06] VITALS: BP 104/61; PULSE 83; RESP 16; TEMP 36.7; O2SAT 100; BMI 24.8
[2023-07-01] MEDS: DiphenhydrAMINE 25 MG Capsule PO (08:10)
[2023-07-01] MEDS: 0.9 % NaCl (Sterile) Posiflush 10 mL IV (08:15)
[2023-07-01] MEDS: 0.9% Normal Saline (500mL Bag) 500 ML 15 ML IV (08:15)
[2023-07-01 08:50] VITALS: BP 86/52; PULSE 90; RESP 16; TEMP 36.6; O2SAT 99
[2023-07-01 09:50] VITALS: BP 102/54; PULSE 65; RESP 16; TEMP 36.6; O2SAT 99
[2023-07-01 11:16] VITALS: BP 97/54; PULSE 84; RESP 16; TEMP 36.8; O2SAT 100
[2023-07-01] MEDS: 0.9% NaCl VAD Flush IV (11:17)
== END 2023-07-01 07:52 | disposition home or self-care (01) ==
LOC: MEDOUTP 07:53
PROVIDERS: PCP Internal Medicine; Referring Provider Specialist; Visit Provider Specialist
DX: D64.81 Anemia due to antineoplastic chemotherapy (principal)
CPT/HCPCS: 36430; 86850; 86900; 86901; 86920; 86922; J7040; P9016; A4216

== ENCOUNTER 2023-07-22 09:17 | Outpatient (CLI) | payer MEDICARE, SELFPAY ==
[2023-07-22 09:40] VITALS: BP 106/50; PULSE 85; RESP 16; TEMP 36.8; O2SAT 99; BMI 24.4
[2023-07-22] MEDS: 0.9 % NaCl (Sterile) Posiflush 10 mL IV (09:42)
[2023-07-22] MEDS: 0.9% Normal Saline (500mL Bag) 500 ML 15 ML IV (09:42)
[2023-07-22 10:17] VITALS: BP 97/47; PULSE 92; RESP 16; TEMP 36.8
[2023-07-22 11:17] VITALS: BP 96/51; PULSE 86; RESP 16; TEMP 36.9; O2SAT 98
[2023-07-22] MEDS: 0.9% NaCl VAD Flush IV (12:12)
== END 2023-07-22 09:18 | disposition home or self-care (01) ==
LOC: MEDOUTP 09:17
PROVIDERS: PCP Internal Medicine; Referring Provider Internal Medicine Hematology & Oncology; Visit Provider Internal Medicine Hematology & Oncology
DX: D64.81 Anemia due to antineoplastic chemotherapy (principal)
CPT/HCPCS: 36430; 86850; 86900; 86901; 86920; 86922; J7040; P9016; A4216

== ENCOUNTER 2023-08-17 11:05 | Emergency (ER) | payer MEDICARE, SELFPAY ==
[2023-08-17 11:06] VITALS: BP 113/90; PULSE 72; PULSE 77; RESP 14; RESP 16; TEMP 36.3; O2SAT 100; O2SAT 99
[2023-08-17 11:25] VITALS: BP 113/90; PULSE 72; RESP 16; TEMP 36.3; O2SAT 100
--- NOTE | 2023-08-17 11:33 | EDS_ITS ---
HPI History of Present Illness Chief Complaint: Cellulitis Informant: patient Narrative Narrative: 77-year-old female presenting to the emergency room with left eye redness and swelling. Patient has a history of lymphoma and last had chemotherapy 6 weeks ago. She has a port. She is a diabetic with a history of rheumatoid arthritis. She is on Eliquis. She notes that last evening she began to have some swelling of the upper left eyelid. She used ice approximately 3-4 times. She states this morning the periorbital region was erythematous and she had more swelling to the point where she cannot fully open her eyes. She was seen at primary care physician's office who sent her to the emergency department. She thought perhaps she had a bug bite but does not recall a particular bug bite or a initial lesion that would suggest a bug bite. No reported fever. She states that last night her vision was not any different. Today she cannot assess because she cannot open her eyelid on her own. [facility] Medical History Diffuse large b-cell lymphoma, spleen Abdominal mass Rheumatoid arthritis Hyperlipidemia associated with type 2 diabetes mellitus Controlled type 2 diabetes mellitus without complication Idiopathic progressive neuropathy Osteoarthritis Atrial fibrillation, new onset B-cell lymphoma Hypercalcemia Home Medications ?Medication ?Instructions ?Recorded ?Last Taken ?Type atorvastatin 10 mg tablet 10 mg PO QHS cholesterol 02/04/23 Unknown History metformin 1,000 mg tablet 1,000 mg PO BID diabetes 02/04/23 Unknown History apixaban 5 mg tablet (Eliquis) 2.5 mg (1/2 x 5 mg) PO BID #60 tabs 04/15/23 Unknown Rx allopurinol 300 mg tablet 300 mg PO DAILY 05/19/23 Unknown History cholecalciferol (vitamin D3) 125 2,000 unit PO DAILY vitamin 05/19/23 Unknown History mcg (5,000 unit) tablet (Vitamin D3) lactobacillus 1 cap PO DAILY 05/19/23 Unknown History btrry-incpcw-jfveapmw protein 15 billion cell-170 mg cap multivitamin 1 tab PO DAILY 05/19/23 Unknown History diltiazem HCl 120 mg 120 mg PO DAILY 06/28/23 Unknown History capsule,extended release 24 hr (Cardizem CD) magnesium oxide 400 mg PO DAILY 07/05/23 Unknown History Allergy/AdvReac Type Severity Reaction Status Date / Time metoprolol AdvReac Intermediate elevated K+ Verified 08/17/23 11:06 celecoxib (From Celebrex) AdvReac HEADACHE Verified 08/17/23 11:06 Penicillins AdvReac HEADACHE Verified 08/17/23 11:06 Surgical History S/P bilateral hip replacements Hx of carpal tunnel repair S/P total knee replacement Social History Smoking Status: Never smoker ROS ROS ED Constitutional Constitutional ED: Denies chills or weight loss Eyes Eyes: Reports other Details: Left periorbital erythema and swelling. ; Denies blindness, bloody eye, burning, change in vision, diplopia, double vision, exophthalmos, foreign body, halo effect, loss of central vision, loss of peripheral vision, photophobia or ptosis ENT ENT ED: Denies bloody eye, ear pain, rhinorrhea or sore throat Cardiovascular Cardiovascular: Denies chest pain, orthopnea, palpitations or racing heartbeat Respiratory/Chest Respiratory/Chest: Denies cough, dyspnea or orthopnea Gastrointestinal Gastrointestinal: Denies abdominal pain, diarrhea, nausea or vomiting Genitourinary Genitourinary ED: Denies dysuria, hematuria or urinary frequency Musculoskeletal Musculoskeletal: Denies arthralgias or myalgias Integumentary Denies abscess or rash Neurologic Neurologic: Denies headache(s) or weakness Psychiatric Psychiatric: Denies anxiety, depression, suicidal ideation or suicidal thoughts Endocrine Endocrinology: Denies polydipsia, polyphagia or polyuria Allergic/Immunologic Allergic/Immunologic ED: Denies mouth swelling, tongue swelling or urticaria EXAM Physical Exam Const Vital Signs: 08/17/23 11:06 08/17/23 11:06 08/17/23 11:25 Temperature 97.3 F L Temperature Source Temporal Pulse Rate 72 77 Respiratory Rate 16 14 Respiratory Pattern Normal Blood Pressure 113/90 H 113/90 H Blood Pressure Mean 97 97 Pulse Ox 100 99 Oxygen Delivery Method Room Air Room Air 08/17/23 11:25 Temperature 97.3 F L Temperature Source Temporal Pulse Rate 72 Respiratory Rate 16 Respiratory Pattern Blood Pressure 113/90 H Blood Pressure Mean 97 Pulse Ox 100 Oxygen Delivery Method Room Air Positive well nourished and well developed General Appearance ED: well developed HEENT Reports normocephalic, head/scalp atraumatic and moist mucous membranes Eyes PERRL and EOMs intact bilaterally Eyes Narrative: There is left periorbital swelling and erythema. I do not see an obvious insect bite as a nidus. She does not have eyelashes. I do not see any swelling along the lid margin. The conjunctiva appears normal. Extraocular motions are intact. She can tell me that I have black glasses on. She can distinguish individual colors and light. There is no ptosis/ophthalmoplegia noted. No hyphema seen. Neck no lymphadenopathy, supple and no JVD Resp normal respiratory effort and clear to auscultation bilaterally Cardio regular rate, regular rhythm and no murmurs GI normal to inspection, nondistended, normoactive bowel sounds and non-tender Palpation: soft Back/Spine no CVA tenderness and normal ROM Extremity normal to inspection General Extremety ED: Negative for edema General Extremity: Negative for edema Neuro oriented x3 and CN's II-XII intact bilaterally Sensorium / Orientation: alert Motor Exam: strength 5/5 throughout Psych mental status grossly normal Mood & Affect: Negative for depressed or tearful Skin no rashes or lesions noted and no wounds MDM MDM MDM Narrative Medical decision making narrative: Differential diagnosis includes periorbital preseptal cellulitis, orbital cellulitis, abscess, localized reaction to insect bite, other allergic reaction, stye, conjunctivitis, ocular trauma. Clinically I am able to open the eye with pressure reduce edema. She is able to tell me I have black glasses on. She can see individual colors and light with the eye open. Extraocular motions are intact. There is no proptosis. Patient due to penicillin allergy will be treated with clindamycin plus cefdinir. She needs repeat examination in 24 hours either by the emergency department or with ophthalmology. Dr. Martin is on-call today. History & Record Review Discussion w/independent historian: Patient Discharge Plan Triage Chief Complaint: Cellulitis ED Provider: Bossman Gallegos Dx/Rx/DC Orders Prescriptions: No Action multivitamin Tablet 1 tab PO DAILY diltiazem HCl [Cardizem CD] 120 mg capsule,extended release 24hr 120 mg PO DAILY metformin 1,000 mg tablet 1,000 mg PO BID atorvastatin 10 mg tablet 10 mg PO QHS cholecalciferol (vitamin D3) [Vitamin D3] 125 mcg (5,000 unit) tablet 2,000 unit PO DAILY Eliquis 5 mg Tablet 2.5 mg PO BID Qty: 60 0RF bbgjhuqo-vhijhxwtk-ssuu pr con 15 billion cell-170 mg capsule 1 cap PO DAILY allopurinol 300 mg tablet 300 mg PO DAILY magnesium oxide 400 mg magnesium tablet 400 mg PO DAILY Primary Care Provider: Lizy Jewell Referrals: Lizy Jewell MD [Primary Care Provider] - Print Language: Ethiopian
[2023-08-17 11:50] VITALS: BP 110/74; PULSE 68; RESP 14; TEMP 36.1; O2SAT 100
== END 2023-08-17 11:52 | disposition home or self-care (01) ==
LOC: ED 11:49
PROVIDERS: Emergency Provider Emergency Medicine; PCP Internal Medicine; Visit Provider Emergency Medicine
DX: L03.213 Periorbital cellulitis (principal); M06.9 Rheumatoid arthritis, unspecified; I48.91 Unspecified atrial fibrillation; E11.9 Type 2 diabetes mellitus without complications; Z85.72 Personal history of non-Hodgkin lymphomas; Z92.21 Personal history of antineoplastic chemotherapy; E78.5 Hyperlipidemia, unspecified; G60.3 Idiopathic progressive neuropathy; Z79.01 Long term (current) use of anticoagulants; Z79.84 Long term (current) use of oral hypoglycemic drugs; Z79.899 Other long term (current) drug therapy; Z88.0 Allergy status to penicillin
CPT/HCPCS: 99283

== ENCOUNTER → 2024-06-11 | Outpatient (CLI) | payer MEDICARE, SELFPAY | END | disposition home or self-care (01) | LOC: PSN 08:52 | PROVIDERS: PCP Internal Medicine; Referring Provider Internal Medicine Cardiovascular Disease; Visit Provider Internal Medicine Cardiovascular Disease | DX: I48.0 Paroxysmal atrial fibrillation (principal) | CPT/HCPCS: 93225; 93226 ==